=== PATIENT | male | born 1995 | race Caucasian/White ===

== ENCOUNTER 2020-01-25 14:48 | Outpatient (REF) | payer OTHER, MEDICAID, SELFPAY ==
--- NOTE | 2020-01-25 14:51 | US_ITS ---
EXAMINATION: US ABDOMEN COMPLETE CLINICAL INFORMATION: Right lower quadrant abdominal pain. COMPARISON: None TECHNIQUE: Real-time imaging of the abdominal viscera. FINDINGS: PANCREAS: The visualized head and body of the pancreas appears unremarkable. Remainder of the pancreas is obscured by bowel gas. ABDOMINAL AORTA: The distal aorta is partially obscured by bowel gas. Remainder of the aorta demonstrates normal caliber. INFERIOR VENA CAVA: Visualized portions are normal. LIVER: Diffuse increased echogenicity. No focal hepatic lesion. There is no intrahepatic biliary duct dilatation seen. GALLBLADDER: Normal. The gallbladder is physiologically distended without evidence of stones, sludge, polyps, wall thickening or pericholecystic fluid. COMMON BILE DUCT: Normal in caliber measuring 0.6 cm in diameter. RIGHT KIDNEY: Normal. No hydronephrosis. No renal calculi or focal parenchymal lesions. The kidney measures 10.4 cm in maximum dimension. LEFT KIDNEY: Normal. No hydronephrosis. No renal calculi or focal parenchymal lesions. The kidney measures 10.0 cm in maximum dimension. SPLEEN: Normal. The spleen measures 10.3 cm in maximum dimension. FREE FLUID: None. US/US abdomen complete IMPRESSION: 1. There is generalized increase in hepatic echotexture, consistent with fatty infiltration or hepatocellular disease. Please correlate clinically. No focal hepatic mass or intrahepatic biliary duct dilatation is seen. 2. Otherwise unremarkable study.
[2020-01-25 15:56] LABS: MANUAL DIFF FLAG NO
[2020-01-25 16:01] LABS: Basophils Percent Auto 0.3 % (0-2); Eosinophils Percent Auto 0.2 % (0-4); Hematocrit 43.1 % (42-52); Hemoglobin 13.9 g/dl (14.0-18.0); Imm Gran Abs Auto 0.03 X10*3/uL (0.00-0.03); Imm Gran Pct Auto 0.3 % (0.0-0.4); Lymphocytes Percent Auto 22.5 % (20-40); Mean Corpuscular HGB Conc 32.3 g/dl (31.0-36.0); Mean Corpuscular Hemoglobin 29.8 pg (27.0-33.0); Mean Corpuscular Volume 92.3 fL (80-98); Mean Platelet Volume 9.5 fL (9.4-12.4); Monocytes Absolute Auto 0.7 X10*3/uL (0.1-1.2); Monocytes Percent Auto 7.3 % (2-11); Neutrophils Absolute Auto 6.2 X10*3/uL (2.0-8.3); Neutrophils Percent Auto 69.4 % (45-73); Platelet Count 280 X10*3/uL (160-400); Red Blood Count 4.67 X10*6/uL (4.60-5.80)
[2020-01-25 16:28] LABS: Alanine Aminotransferase 55 U/L (0-40); Albumin Level 5.1 g/dL (3.5-5.0); Alkaline Phosphatase 88 U/L (39-117); Amylase 65 U/L (28-100); Anion Gap 15 (12-20); Aspartate Amino Transferase 50 U/L (5-37); Bilirubin Direct 0.3 mg/dL (0.0-0.5); Bilirubin Total 0.5 mg/dL (0.0-1.0); Blood Urea Nitrogen 8 mg/dL (9-16); Calcium 9.9 mg/dL (8.4-10.2); Carbon Dioxide 30 mmol/L (22-29); Chloride 103 mmol/L (96-108); Estimated Glomerular Filt Rate > 60; Glucose Random 84 mg/dL (60-115); Lipase 30 U/L (8-78); Potassium 4.8 mmol/l (3.3-5.1); Sodium 143 mmol/L (135-145)
[2020-01-27 10:31] LABS: MANUAL DIFF FLAG NO
[2020-01-27 10:50] LABS: Basophils Absolute Auto 0.1 X10*3/uL (0.0-0.2); Basophils Percent Auto 0.7 % (0-2); Eosinophils Absolute Auto 0.2 X10*3/uL (0.0-0.4); Eosinophils Percent Auto 2.1 % (0-4); Hematocrit 45.2 % (42-52); Hemoglobin 14.8 g/dl (14.0-18.0); Imm Gran Abs Auto 0.02 X10*3/uL (0.00-0.03); Imm Gran Pct Auto 0.3 % (0.0-0.4); Lymphocytes Absolute Auto 2.4 X10*3/uL (1.2-4.9); Lymphocytes Percent Auto 30.7 % (20-40); Mean Corpuscular HGB Conc 32.7 g/dl (31.0-36.0); Mean Corpuscular Hemoglobin 29.9 pg (27.0-33.0); Mean Corpuscular Volume 91.3 fL (80-98); Monocytes Absolute Auto 0.7 X10*3/uL (0.1-1.2); Monocytes Percent Auto 9.3 % (2-11); Neutrophils Absolute Auto 4.4 X10*3/uL (2.0-8.3); Neutrophils Percent Auto 56.9 % (45-73); Platelet Count 316 X10*3/uL (160-400); Red Blood Count 4.95 X10*6/uL (4.60-5.80); Red Cell Distribution Width 12.9 % (11.0-16.0); White Blood Count 7.7 X10*3/uL (4.8-10.8)
== END 2020-01-25 14:49 | disposition home or self-care (01) ==
LOC: HO.US 14:48
PROVIDERS: PCP Nurse Practitioner Family; Visit Provider Nurse Practitioner Family
DX: R10.31 Right lower quadrant pain (principal); D64.9 Anemia, unspecified
CPT/HCPCS: 36415; 76700; 80048; 80076; 82150; 83690; 85025

== ENCOUNTER 2020-01-27 | Outpatient (REF) | payer OTHER, MEDICAID, SELFPAY | END 2020-01-27 00:01 | disposition home or self-care (01) | LOC: HO.LAB | PROVIDERS: Visit Provider Nurse Practitioner Family | DX: D64.9 Anemia, unspecified (principal) | CPT/HCPCS: 36415; 85025 ==

== ENCOUNTER 2020-05-12 15:03 | Outpatient (REF) | payer OTHER, MEDICAID, SELFPAY ==
[2020-05-12 16:53] LABS: Alanine Aminotransferase 32 U/L (0-40); Albumin Level 4.7 g/dL (3.5-5.0); Alkaline Phosphatase 95 U/L (39-117); Anion Gap 11 (12-20); Aspartate Amino Transferase 32 U/L (5-37); Bilirubin Total 0.4 mg/dL (0.0-1.0); Blood Urea Nitrogen 11 mg/dL (9-16); Calcium 9.2 mg/dL (8.4-10.2); Carbon Dioxide 32 mmol/L (22-29); Chloride 103 mmol/L (96-108); Estimated Glomerular Filt Rate > 60; Glucose Random 83 mg/dL (60-115); Potassium 3.8 mmol/L (3.3-5.1); Sodium 142 mmol/L (135-145); Total Protein 7.4 g/dL (6.5-8.0)
[2020-05-14 16:17] LABS: HCV Log PCR <1.18 NOT DETECTED Log IU/mL (NOT DETECTED); HepC Viral Load <15 NOT DETECTED IU/mL (NOT DETECTED)
== END 2020-05-12 15:04 | disposition home or self-care (01) ==
LOC: HO.HMGCLDS 15:03
PROVIDERS: PCP Nurse Practitioner Family; Visit Provider Hospitalist
DX: R76.8 Other specified abnormal immunological findings in serum (principal)
CPT/HCPCS: 36415; 80053; 87522

== ENCOUNTER 2020-05-20 14:22 | Outpatient (REF) | payer OTHER, MEDICAID, SELFPAY ==
--- NOTE | ~2020-05-20 | MM_ITS ---
EXAMINATION: MM DIAGNOSTIC DIGITAL BREAST TOMOSYNTHESIS, BILATERAL US DIAGNOSTIC ULTRASOUND BREAST, RIGHT CLINICAL INFORMATION: 24-year-old male with intermittent pain and mild fullness retroareolar right breast. No prior breast imaging. COMPARISON: None (current study represents initial baseline exam). TECHNIQUE: Digital breast tomosynthesis is performed in both the craniocaudal and mediolateral oblique views along with computer-aided detection (CAD). Synthesized 2D images are generated from the tomosynthesis. Ultrasound right breast is performed retroareolar and periareolar region. Grayscale imaging and color Doppler are performed without and with harmonics. FINDINGS: There are scattered areas of fibroglandular density (ACR BI-RADS breast composition Category b). There are changes of gynecomastia [id number] retroareolar right breast with trace involvement left retroareolar region. There is no mass or architectural abnormality or abnormal calcifications. The axilla and skin contours are unremarkable. No skin thickening. No coarsening of the stromal markings. Ultrasound right breast shows scattered vascular type pattern retroareolar region corresponding to the mammography. No additional findings. Results are discussed with the patient at time of visit. MM/MM tomosynthesis diagnostic BI IMPRESSION: Asymmetric gynecomastia, greater on right. ASSESSMENT: BI-RADS 2: Benign RECOMMENDATION: Patient may be managed based on the clinical impression as needed.
== END 2020-05-20 14:23 | disposition home or self-care (01) ==
LOC: HO.MAMMO 14:22
PROVIDERS: Visit Provider Internal Medicine
DX: N63.10 Unspecified lump in the right breast, unspecified quadrant (principal)
CPT/HCPCS: 76642; 77062; 77066

== ENCOUNTER 2021-12-01 12:03 | Inpatient (IN) | payer OTHER, MEDICAID, SELFPAY ==
[2021-12-01] VITALS (13 sets, daily range): BP systolic 148–163; BP diastolic 77–101; PULSE 88–143; RESP 12–30; TEMP 36.6–37.2; O2SAT 70–100; BMI 23.6
--- NOTE | ~2021-12-01 | XR_ITS ---
EXAMINATION: XR CHEST CLINICAL INFORMATION: Dyspnea COMPARISON: Chest x-ray 01/29/2017 TECHNIQUE: Frontal view of the chest was obtained. FINDINGS: The lungs are clear. No airspace consolidation, pleural effusion, or pneumothorax. The cardiomediastinal silhouette is within normal limits. No acute osseous injury. XR/XR chest 1V IMPRESSION: No acute pulmonary process.
--- NOTE | ~2021-12-01 | US_ITS ---
EXAMINATION: US ABDOMEN LIMITED CLINICAL INFORMATION: Elevated LFTs. COMPARISON: Abdominal ultrasound dated 01/25/2020. TECHNIQUE: Real-time imaging of the right upper quadrant abdominal viscera. FINDINGS: PANCREAS: Unremarkable. LIVER: Unremarkable. GALLBLADDER: Unremarkable. COMMON BILE DUCT: Normal in caliber measuring 0.5 cm in diameter. RIGHT KIDNEY: 10.3 cm. Unremarkable. FREE FLUID: None. US/US abdomen limited IMPRESSION: Unremarkable abdominal ultrasound.
--- NOTE | 2021-12-01 12:08 | ED_ITS ---
HPI - Asthma General Chief Complaint: Asthma Stated Complaint: diff breathing Time Seen by Provider: 12/01/21 12:05 Source: patient and old records reviewed Mode of arrival: EMS Limitations: no limitations History of Present Illness HPI Narrative: 26 yo male hx of ADHD, on methadone, post COVID syndrome, bronchial asthma - COVID 6 weeks ago treated with paxlovid since then has been on intermittent steroids from urgent care. Just saw pulmonology yesterday who recommended continuing prednisone 10mg daily, singulair, symbicort. Comes to the ED today with c/o worsening dyspnea and wheezes. Thinks smoking THC a couple of days ago triggered it. The patient reports no response to treatments at home. EMS notes patient was hypoxic with sats in 60s, end tidal 90s and tripoding, given 2 duonebs, IV steroids, IV magnesium with epi. States he feels much better but still working to breath on arrival MD complaint: asthma attack , shortness of breath and wheezing Onset (ago): day(s) (2) Severity: severe Context: smoke exposure Associated symptoms: dry cough Asthma History: adult onset Treatments Prior to Arrival: inhaled bronchodilator, IV steroid, oxygen and other (epi, magnesium) Related Data Home Medications Medication Instructions Recorded Confirmed budesonide-formoterol HFA 160 2 puff inhalation BID 11/01/21 12/01/21 mcg-4.5 mcg/actuation aerosol inhaler (Symbicort) methadone 10 mg/mL oral 102 mg PO DAILY 11/30/21 12/01/21 concentrate (Methadone Intensol) Previous Rx's Medication Instructions Recorded omeprazole 20 mg capsule,delayed 20 mg PO DAILY #30 caps 05/17/21 release montelukast 10 mg tablet 10 mg PO BEDTIME 90 days #90 tabs 11/01/21 albuterol sulfate 90 mcg/actuation 1 puff inhalation QID PRN 11/20/21 aerosol inhaler shortness of breath or wheezing 30 days #8.5 grams albuterol sulfate 0.63 mg/3 mL 0.63 mg (3 mL) inhalation QID PRN 11/21/21 solution for nebulization shortness of breath or wheezing 30 days #75 mL Updraft machine #1 ea 11/27/21 Allergies Allergy/AdvReac Type Severity Reaction Status Date / Time No Known Allergies Allergy Verified 11/30/21 16:10 [No Known Allergies*] Review of Systems Review of Systems: Constitutional : No Fever, No Chills ENT/Mouth : No Hoarseness, No sore throat, No Rhinorrhea Eyes: No Redness, No Discharge, No Vision Changes Cardiovascular : No Chest Pain, positive SOB, positive Dyspnea on Exertion, No Edema Respiratory : positive Cough, No Sputum, positive Wheezing, Gastrointestinal : No Nausea, No Vomiting, No Diarrhea, No abdominal Pain Genitourinary : No Dysuria, No Hematuria Musculoskeletal : No joint pain, No Myalgias Skin : No rash Neuro : No Weakness, No Numbness, No Headache Psych : No anxiety, depression Heme/Lymph: No Bruising, No Bleeding Endocrine : No Polyuria, No Polydipsia All other systems reviewed and are negative PMFSH Past Medical History Attestation statement: The following information was validated with the patient. Source: old records reviewed Medical History Asthma Attention deficit hyperactivity disorder (ADHD) Breast mass in male Elevated LFTs Gastritis History of opioid abuse Surgical History No pertinent past surgical history Family History Family History Father History of kidney transplant Heart problem Diabetes mellitus Mother Smoker ETOH abuse Maternal Grandmother Breast cancer Maternal Grandfather CVD (cardiovascular disease) Paternal Grandmother No problems noted. 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 Oriented X3. Moderate acute distress. Eyes: Pupils equal, round and reactive to light. ENT: Pharynx normal. Neck: Normal inspection. Neck supple. CVS: tachycardic heart rate and rhythm. Pulses normal. Respiratory: moderate respiratory distress - single words, tachypnea, retractions. Breath sounds decreased - diffuse wheezes noted throughout Abdomen: Soft and nontender. Skin: Skin warm and dry. Normal skin color. Normal skin turgor. Extremities: No lower extremity edema. No calf ttp Neuro: Oriented X 3. No motor deficit. No sensory deficit. Course Course Course Narrative: leukocytosis likely due to steroid use hi flow ordered 3rd neb as well patient is drastically improving on high flow will continue to observe patient doing much better, repeat VBG ordered planned admit repeat VBG better patient on lower hiflo - 30/30% looks way more comfortable MDM - Asthma MDM Narrative Medical decision making narrative: 26 yo male hx of ADHD, on methadone, post COVID syndrome, bronchial asthma - COVID 6 weeks ago treated with paxlovid since then has been on intermittent steroids - at this time presents with severe asthma attack. Will need additional hour long neb treatment - already received IV steroids, IV magnesium and IM epi with EMS. Will order labs, COVID, CXR. Anticipate admission - no prior admits or intubations. Lab Data Result diagrams: 12/01/21 12:50 12/01/21 12:50 Labs: Lab Results 12/01/21 12/01/21 12/01/21 Range/Units 12:36 12:50 12:50 WBC 21.0 H (4.8-10.8) X10*3/uL RBC 4.70 (4.60-5.80) X10*6/uL Hgb 13.5 L (14.0-18.0) g/dl Hct 40.2 L (42.0-52.0) % MCV 85.5 (80.0-98.0) fL MCH 28.7 (27.0-33.0) pg MCHC 33.6 (31.0-36.0) g/dl RDW 12.1 (11.0-16.0) % Plt Count 315 (160-400) X10*3/uL MPV 9.1 L (9.4-12.4) fL Immature Gran % (Auto) 0.6 H (0.0-0.4) % Neut % (Auto) 69.3 (45-73) % Lymph % (Auto) 14.5 L (20-40) % [place] % (Auto) 6.8 (2-11) % Eos % (Auto) 8.3 H (0-4) % Baso % (Auto) 0.5 (0-2) % Lymph # (Auto) 3.0 (1.2-4.9) X10*3/uL [place] # (Auto) 1.4 H (0.1-1.2) X10*3/uL Eos # (Auto) 1.8 H (0.0-0.4) X10*3/uL Baso # (Auto) 0.1 (0.0-0.2) X10*3/uL Abs Immat Gran (auto) 0.13 H (0.00-0.03) X10*3/uL Absolute Neuts (auto) 14.6 H (2.0-8.3) x10*3/uL Absolute Nucleated RBC 0.000 (0.0-0.012) X10*3/uL Nucleated RBC % (auto) 0.0 (0.0-0.2) /100WBC VBG pH (7.32-7.43) VBG pCO2 mmHg VBG pO2 mmHg VBG HCO3 (22-26) mmol/L VBG O2 Saturation % VBG Base Excess mmol/L Sodium 141 (135-145) mmol/L Potassium 3.6 (3.3-5.1) mmol/L Chloride 103 (96-108) mmol/L Carbon Dioxide 28 (22-29) mmol/L Anion Gap 14 (12-20) BUN 11 (9-16) mg/dL Creatinine 0.85 (0.5-1.4) mg/dL Estim Creat Clear Calc 137.1 Estimated GFR > 60 Random Glucose 237 H D (60-115) mg/dL Calcium 8.7 (8.4-10.2) mg/dL Magnesium 3.0 H (1.6-2.6) mg/dL Total Bilirubin 0.2 (0.0-1.0) mg/dL Direct Bilirubin < 0.2 (0.0-0.5) mg/dL AST 109 H (5-37) U/L ALT 65 H (0-40) U/L Alkaline Phosphatase 76 (39-117) U/L Total Protein 6.6 (6.5-8.0) g/dL Albumin 4.2 (3.5-5.0) g/dL COVID-19 (SHOAIB) Negative (Negative) COVID-19 Clin Com See Note 12/01/21 12/01/21 Range/Units 12:52 14:57 WBC (4.8-10.8) X10*3/uL RBC (4.60-5.80) X10*6/uL Hgb (14.0-18.0) g/dl Hct (42.0-52.0) % MCV (80.0-98.0) fL MCH (27.0-33.0) pg MCHC (31.0-36.0) g/dl RDW (11.0-16.0) % Plt Count (160-400) X10*3/uL MPV (9.4-12.4) fL Immature Gran % (Auto) (0.0-0.4) % Neut % (Auto) (45-73) % Lymph % (Auto) (20-40) % [place] % (Auto) (2-11) % Eos % (Auto) (0-4) % Baso % (Auto) (0-2) % Lymph # (Auto) (1.2-4.9) X10*3/uL [place] # (Auto) (0.1-1.2) X10*3/uL Eos # (Auto) (0.0-0.4) X10*3/uL Baso # (Auto) (0.0-0.2) X10*3/uL Abs Immat Gran (auto) (0.00-0.03) X10*3/uL Absolute Neuts (auto) (2.0-8.3) x10*3/uL Absolute Nucleated RBC (0.0-0.012) X10*3/uL Nucleated RBC % (auto) (0.0-0.2) /100WBC VBG pH 7.25 L 7.31 L (7.32-7.43) VBG pCO2 61 53 mmHg VBG pO2 56 49 mmHg VBG HCO3 27 H TNP (22-26) mmol/L VBG O2 Saturation 79.0 75.0 % VBG Base Excess -0.8 0.8 mmol/L Sodium (135-145) mmol/L Potassium (3.3-5.1) mmol/L Chloride (96-108) mmol/L Carbon Dioxide (22-29) mmol/L Anion Gap (12-20) BUN (9-16) mg/dL Creatinine (0.5-1.4) mg/dL Estim Creat Clear Calc Estimated GFR Random Glucose (60-115) mg/dL Calcium (8.4-10.2) mg/dL Magnesium (1.6-2.6) mg/dL Total Bilirubin (0.0-1.0) mg/dL Direct Bilirubin (0.0-0.5) mg/dL AST (5-37) U/L ALT (0-40) U/L Alkaline Phosphatase (39-117) U/L Total Protein (6.5-8.0) g/dL Albumin (3.5-5.0) g/dL COVID-19 (SHOAIB) (Negative) COVID-19 Clin Com ECG Data Attestation: I personally reviewed and interpreted this ECG as follows: ECG interpretation date: 12/01/21 ECG interpretation time: 13:14 Interpretation: Rate: 124 Rhythm: sinus tach [place]: rightward Normal P waves. Normal SELENA. Normal QRS complex. ST T wave : normal no TYE qTC: normal prior studies: none The study has been interpreted contemporaneously by me. . Critical Care Time Critical Care Time Critical Care Time: Yes Total Critical Care Time: 60 Attestation: high flow o2, repeat hour long nebs, IV meds, IV steroids, IV magnesium, admission I attest to this time spent taking care of the patient Discharge Plan Discharge Clinical Impression: Asthmaticus, status Qualifiers: Asthma severity: moderate Asthma persistence: persistent Qualified Code(s): J45.42 - Moderate persistent asthma with status asthmaticus Patient Disposition: Admitted As Inpatient
--- NOTE | 2021-12-01 12:13 | ECG_ITS ---
Test Reason : DIFFIULTY BREATHIN Blood Pressure : / mmHG Vent. Rate : 124 BPM Atrial Rate : 124 BPM P-R Int : 122 ms QRS Dur : 084 ms QT Int : 308 ms P-R-T Axes : 066 091 025 degrees QTc Int : 442 ms Sinus tachycardia Rightward axis RSR' or QR pattern in V1 suggests right ventricular conduction delay Nonspecific T wave abnormality Lateral leads Abnormal ECG When compared with ECG of 29-JAN-2017 22:06, Nonspecific T wave abnormality now evident in Lateral leads Referred By: Mayi Bass Electronically Signed By:SHUN GARCIA MD
[2021-12-01] MEDS: 0.9 % Sodium Chloride 1,000 ML 999 ML IVCONT (12:29)
[2021-12-01] MEDS: Albuterol Sulfate 2.5 MG/0.5 ML VIAL.NEB 10 MG INHALE (12:30)
[2021-12-01] MEDS: Albuterol Sulfate 7.5 MG, Albuterol/Iprat 2.5/0.5MG 3 ML 3 ML INHALE ×2 (12:46→13:19)
[2021-12-01 12:55] LABS: MANUAL DIFF FLAG NO
[2021-12-01 12:57] LABS: COVID-19 Test Negative (Negative)
[2021-12-01 12:58] LABS: VBG Base Excess -0.8 mmol/L; VBG HCO3 27 mmol/L (22-26); VBG pCO2 61 mmHg; VBG pH 7.25 (7.32-7.43); VBG pO2 56 mmHg
[2021-12-01 12:59] LABS: Basophils Absolute Auto 0.1 X10*3/uL (0.0-0.2); Basophils Percent Auto 0.5 % (0-2); Eosinophils Absolute Auto 1.8 X10*3/uL (0.0-0.4); Eosinophils Percent Auto 8.3 % (0-4); Hematocrit 40.2 % (42.0-52.0); Hemoglobin 13.5 g/dl (14.0-18.0); Imm Gran Abs Auto 0.13 X10*3/uL (0.00-0.03); Imm Gran Pct Auto 0.6 % (0.0-0.4); Lymphocytes Percent Auto 14.5 % (20-40); Mean Corpuscular HGB Conc 33.6 g/dl (31.0-36.0); Mean Corpuscular Hemoglobin 28.7 pg (27.0-33.0); Mean Corpuscular Volume 85.5 fL (80.0-98.0); Mean Platelet Volume 9.1 fL (9.4-12.4); Monocytes Absolute Auto 1.4 X10*3/uL (0.1-1.2); Monocytes Percent Auto 6.8 % (2-11); Neutrophils Absolute Auto 14.6 x10*3/uL (2.0-8.3); Neutrophils Percent Auto 69.3 % (45-73); Platelet Count 315 X10*3/uL (160-400); Red Cell Distribution Width 12.1 % (11.0-16.0)
[2021-12-01 13:01] LABS: Venous Blood Gas Refer to POC result
[2021-12-01 13:16] LABS: Alanine Aminotransferase 65 U/L (0-40); Albumin Level 4.2 g/dL (3.5-5.0); Alkaline Phosphatase 76 U/L (39-117); Anion Gap 14 (12-20); Aspartate Amino Transferase 109 U/L (5-37); Bilirubin Direct < 0.2 mg/dL (0.0-0.5); Bilirubin Total 0.2 mg/dL (0.0-1.0); Blood Urea Nitrogen 11 mg/dL (9-16); Calcium 8.7 mg/dL (8.4-10.2); Carbon Dioxide 28 mmol/L (22-29); Chloride 103 mmol/L (96-108); Creatinine Clr Calc Pharmacy 137.1; Estimated Glomerular Filt Rate > 60; Glucose Random 237 mg/dL (60-115); Potassium 3.6 mmol/L (3.3-5.1); Sodium 141 mmol/L (135-145); Total Protein 6.6 g/dL (6.5-8.0)
--- NOTE | 2021-12-01 13:41 | PHA.MEDREC ---
Pharmacy Consult ? Medication Reconciliation Pharmacy has completed the medication reconciliation. Patient confirmed all medications. Cee Garrido, TaylaD
--- NOTE | 2021-12-01 14:09 | HE.PHANOTE ---
Methdone Confirmation Patient last received methadone 102 mg on 12/01/2021 @ 3132 at [facility]. Confirmed with LUCILA Stark at [facility]. Cee Garrido, TaylaD
[2021-12-01 15:02] LABS: VBG Base Excess 0.8 mmol/L; VBG pCO2 53 mmHg; VBG pH 7.31 (7.32-7.43); VBG pO2 49 mmHg
[2021-12-01 15:03] LABS: Venous Blood Gas Refer to POC result
--- NOTE | 2021-12-01 15:51 | P.HPHOSP_ITS ---
History of Present Illness Date of Service: 12/01/21 <LUCILA Young - Last Filed: 12/01/21 16:18> Attending physician on admission: Liss Frederick <LUCILA Young - Last Filed: 12/01/21 16:18> Chief Complaint: sob, wheezing <LUCILA Young - Last Filed: 12/01/21 16:18> 26-year-old male with history of moderate persistent asthma has been experiencing exacerbation since COVID-19 diagnosis 5 weeks ago treated with paxlovid on prednisone taper (currently 5mg), ADHD, substance abuser, and opiate dependence the on methadone presented to the ED via EMS after developing sudden onset shortness of breath while at home. He states he did smoke marijuana last night which may have been triggering. EMS noted on arrival patient was hypoxic with sats in the 60s, end-tidal 90s and tripoding. He was given 2 DuoNebs, IV steroids, IV magnesium with epi. On arrival to the ED, patient reporting feeling much better but still wheezing. He was given additional DuoNeb and placed on high-flow oxygen. On arrival, tachycardic to 140, tachypneic to 30 with oximetry of 92%. CXR negative for any acute pulmonary abnormality. WBC 21.0, stable normocytic anemia. Renal function and electrolyte levels normal, glucose 237, magnesium 3.0, AST 109, ALT 65. Negative for COVID-19. He denies any sick contacts. Since being diagnosed with COVID-19 5 weeks ago he has been experiencing an increase in shortness of breath and wheezing as well as alb uterol usage. He is now following with pulmonology who has started him on Symbicort and he is completing a prednisone taper. He reports symptoms of shortness of breath, wheezing, and cough. Denies any fevers, chills, abdominal pain, nausea, vomiting, lightheadedness, or chest pain. Reports 3 12 oz beers per day, last drink yesterday, denies history withdrawal. Rerports daily inh fentanyl use, last use this morning. No cigarettes. <LUCILA Young - Last Filed: 12/01/21 16:18> Review of Systems Review of Systems: General: No fevers, malaise, unintentional weight loss HEENT: No runny nose, congestion, sore throat Cardiovascular: No chest pain, palpitations, or leg edema Respiratory: Reports shortness of breath, wheezing, cough GI: No abdominal pain, nausea, vomiting, diarrhea, constipation, melena, hematochezia : No dysuria, hematuria, increased urinary frequency Neuro: No headaches, weakness, paresthesias Skin: No rashes or lesions <LUCILA Young - Last Filed: 12/01/21 16:18> ON LICENSE OF [facility] Medical History: Medical History Asthma Attention deficit hyperactivity disorder (ADHD) Breast mass in male Elevated LFTs Gastritis History of opioid abuse <LUCILA Young Last Filed: 12/01/21 16:18> Family History: Family History Father History of kidney transplant Heart problem Diabetes mellitus Mother Smoker ETOH abuse Maternal Grandmother Breast cancer Maternal Grandfather CVD (cardiovascular disease) Paternal Grandmother No problems noted. Paternal Grandfather Diabetes mellitus Paternal Uncle Substance use disorder Maternal Uncle Substance use disorder Family/Other Substance use disorder <LUCILA Young Last Filed: 12/01/21 16:18> Surgical History: Surgical History No pertinent past surgical history <LUCILA Young Last Filed: 12/01/21 16:18> Social History: Social History (Updated 12/01/21 @ 12:16 by Mayi Bass DO) Housing: House Alcohol intake: current Alcohol intake frequency: 0-2 drinks per day Patient Tobacco Use Status: Former Tobacco user e-Cigarette/Vaping Use: Never Used Second Hand Smoke Exposure: No Substance Use Type: Marijuana Advance Directives: No Advance Directives Information Provided: No Current occupational status: employed 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 Current occupational exposures/hazards: No Cognitive needs: No Hearing needs: No Vision needs: No <LUCILA Young Last Filed: 12/01/21 16:18> Meds Allergies/Adverse reactions: Allergies Allergy/AdvReac Type Severity Reaction Status Date / Time No Known Allergies Allergy Verified 11/30/21 16:10 [No Known Allergies*] <LUCILA Young - Last Filed: 12/01/21 16:18> Active Medications: Current Medications Acetaminophen (Acetaminophen 325 Mg Tablet) 650 mg PO Q6H PRN PRN Reason: Pain, Mild (Pain Scale 1-3) Albuterol/Ipratropium (Albuterol/Iprat 2.5/0.5mg 3 Ml Ampul.Neb) 3 ml INHALE RQ4H WHILE AWAKE BETI Docusate Sodium (Docusate Sodium 100 Mg Capsule) 100 mg PO DAILY PRN PRN Reason: Constipation Enoxaparin Sodium (Enoxaparin Sodium 40 Mg/0.4 Ml Syringe) 40 mg SUBCUT Q24H BETI Guaifenesin (Guaifenesin 200 Mg/10 Ml 10 Ml Liquid) 10 ml PO Q6H PRN PRN Reason: Cough Methylprednisolone Sodium Succinate (Methylprednisolone Sod Succ 40 Mg/Ml Vial) 40 mg IVPUSH Q12H BETI Ondansetron HCl (Ondansetron Hcl 4 Mg/2 Ml Vial) 4 mg IVPUSH Q8H PRN PRN Reason: Nausea and Vomiting Pharmacy Consult (Consult Rx Perform Med Rec) 1 each MISCELLANE ONCE PRN PRN Reason: Consult order Sodium Chloride (0.9 % Sodium Chloride Flush 3 Ml Syringe) 3 ml IVFLUSH QSHIFT [facility] <LUCILA Young - Last Filed: 12/01/21 16:18> Home medications: Home Medications Medication Instructions Recorded Confirmed Last Taken Type budesonide-formoterol HFA 160 2 puff inhalation BID 11/01/21 12/01/21 11/30/21 History mcg-4.5 mcg/actuation aerosol inhaler (Symbicort) methadone 10 mg/mL oral 102 mg PO DAILY 11/30/21 12/01/21 12/01/21 07:54 History concentrate (Methadone Intensol) <LUCILA Young - Last Filed: 12/01/21 16:18> Physical Exam Vital Signs and Narrative: Vital Signs: Last Vital Signs Temp 98 F 12/01/21 12:56 Pulse 123 H 12/01/21 13:19 Resp 18 12/01/21 14:55 BP 160/85 H 12/01/21 12:56 Pulse Ox 95 12/01/21 13:15 O2 Del Method 12/01/21 13:15 O2 Flow Rate 3 12/01/21 12:56 BMI result Body Mass Index 23.6 <LUCILA Young - Last Filed: 12/01/21 16:18> Constitutional - Awake and Alert, No apparent distress Eyes - PERRLA, EOMI Cardiovascular - S1S2, RRR, No edema Respiratory - Coarse lung sounds with diffuse wheezing bilaterally Normal lung expansion, Normal respiratory effort, No respiratory distress on high-flow oxygen Gastrointestinal - NT / ND; +BS; No rebound or guarding Extremities - no calf tenderness bilaterally, no swelling Skin - Warm/Dry Neurological - Alert & oriented x3, No focal deficit Psychological - Appropriate affect <LUCILA Young - Last Filed: 12/01/21 16:18> Results Labs CBC and Chem 7: : 12/01/21 12:50 12/01/21 12:50 <LUCILA Young - Last Filed: 12/01/21 16:18> Labs: Laboratory Results - last 24 hr 12/01/21 12/01/21 12/01/21 12:36 12:50 12:50 MCV 85.5 MCH 28.7 MCHC 33.6 RDW 12.1 Plt Count 315 MPV 9.1 L Immature Gran % (Auto) 0.6 H Neut % (Auto) 69.3 Lymph % (Auto) 14.5 L [place] % (Auto) 6.8 Eos % (Auto) 8.3 H Baso % (Auto) 0.5 Lymph # (Auto) 3.0 [place] # (Auto) 1.4 H Eos # (Auto) 1.8 H Baso # (Auto) 0.1 Abs Immat Gran (auto) 0.13 H Absolute Neuts (auto) 14.6 H Absolute Nucleated RBC 0.000 Nucleated RBC % (auto) 0.0 VBG pH VBG pCO2 VBG pO2 VBG HCO3 VBG O2 Saturation VBG Base Excess Anion Gap 14 Estim Creat Clear Calc 137.1 Estimated GFR > 60 Random Glucose 237 H D Calcium 8.7 Magnesium 3.0 H Total Bilirubin 0.2 Direct Bilirubin < 0.2 AST 109 H ALT 65 H Alkaline Phosphatase 76 Total Protein 6.6 Albumin 4.2 COVID-19 (SHOAIB) Negative COVID-19 Clin Com See Note 12/01/21 12/01/21 12:52 14:57 MCV MCH MCHC RDW Plt Count MPV Immature Gran % (Auto) Neut % (Auto) Lymph % (Auto) [place] % (Auto) Eos % (Auto) Baso % (Auto) Lymph # (Auto) [place] # (Auto) Eos # (Auto) Baso # (Auto) Abs Immat Gran (auto) Absolute Neuts (auto) Absolute Nucleated RBC Nucleated RBC % (auto) VBG pH 7.25 L 7.31 L VBG pCO2 61 53 VBG pO2 56 49 VBG HCO3 27 H TNP VBG O2 Saturation 79.0 75.0 VBG Base Excess -0.8 0.8 Anion Gap Estim Creat Clear Calc Estimated GFR Random Glucose Calcium Magnesium Total Bilirubin Direct Bilirubin AST ALT Alkaline Phosphatase Total Protein Albumin COVID-19 (SHOAIB) COVID-19 Clin Com <LUCILA Young - Last Filed: 12/01/21 16:18> Imaging Radiologist's Impressions: Impressions Chest X-Ray 12/01/21 12:50 IMPRESSION: No acute pulmonary process. <LUCILA Young - Last Filed: 12/01/21 16:18> Assessment and Plan (1) Asthmaticus, status: Qualifiers: Asthma persistence: persistent Asthma severity: moderate Qualified Code(s): J45.42 - Moderate persistent asthma with status asthmaticus <LUCILA Young - Last Filed: 12/01/21 16:18> Status: Acute <LUCILA Young - Last Filed: 12/01/21 16:18> (2) Post-COVID syndrome: Status: Acute <LUCILA Young - Last Filed: 12/01/21 16:18> (3) Acute hypoxemic respiratory failure: Status: Acute <LUCILA Young - Last Filed: 12/01/21 16:18> 26-year-old male with history of moderate persistent asthma has been experiencing exacerbation since COVID-19 diagnosis 5 weeks ago treated with paxlovid on prednisone taper (currently 5mg), ADHD, substance abuser, and opiate dependence the on methadone admitted for status asthmaticus with acute hypoxemic respiratory failure. # acute hypoxemic respiratory failure secondary to severe asthma exacerbation -oximetry a of 67% per EMS -initially requiring high-flow oxygen in the ED. Titrate to nasal cannula to maintain oxygen saturation >92% -treatment of asthma exacerbation as below # status asthmaticus -COVID-19 negative -moderate persistent asthma with exacerbation of symptoms ongoing since COVID-19 diagnosis 5 weeks ago on outpatient prednisone taper -who received IV steroids, DuoNeb x2, and IV magnesium with epinephrine no EMS with an additional DuoNeb given in the ED. -to titrate oxygen as above -40 mg IV Solu-Medrol by daily -DuoNebs every 4 hours while awake -guaifenesin as needed for cough # opioid dependence with ongoing substance use -continue methadone -addiction consult for ongoing fentanyl use and alcohol use # alcohol abuse -drinks 312 oz beers daily, last drink last night -CIWA scale # transaminitis -AST 109/ALT 65 -hepatitis-B/C profile ordered. HIV ab/Ag ordered due to history of drug abuse -consider abdominal ultrasound if LFTs remain elevated DVT prophylaxis-Lovenox Full code Patient requires inpatient stay of at least 2 midnights due to status asthmaticus with acute hypoxemic respiratory failure requiring high-flow oxygen, IV steroids <LUCILA Young - Last Filed: 12/01/21 16:18> 26-year-old male with history of moderate persistent asthma has been experiencing exacerbation since COVID-19 diagnosis 5 weeks ago treated with paxlovid on prednisone taper (currently 5mg), ADHD, substance abuser, and opiate dependence the on methadone admitted for status asthmaticus with acute hypoxemic respiratory failure. # acute hypoxemic respiratory failure secondary to severe asthma exacerbation -oximetry a of 67% per EMS -initially requiring high-flow oxygen in the ED. Titrate to nasal cannula to maintain oxygen saturation >92% -treatment of asthma exacerbation as below # status asthmaticus -COVID-19 negative -moderate persistent asthma with exacerbation of symptoms ongoing since COVID-19 diagnosis 5 weeks ago on outpatient prednisone taper -who received IV steroids, DuoNeb x2, and IV magnesium with epinephrine no EMS with an additional DuoNeb given in the ED. -to titrate oxygen as above -40 mg IV Solu-Medrol by daily -DuoNebs every 4 hours while awake -guaifenesin as needed for cough # opioid dependence with ongoing substance use -continue methadone -addiction consult for ongoing fentanyl use and alcohol use # alcohol abuse -drinks 312 oz beers daily, last drink last night -CIWA scale # transaminitis -AST 109/ALT 65 -hepatitis-B/C profile ordered. HIV ab/Ag ordered due to history of drug abuse -consider abdominal ultrasound if LFTs remain elevated DVT prophylaxis-Lovenox Full code Patient requires inpatient stay of at least 2 midnights due to status asthmaticus with acute hypoxemic respiratory failure requiring high-flow oxygen, IV steroids Addendum to history and physical by mid-level provider, LUCILA Burgess I interviewed and examined the patient. I discussed their presentation and management with the mid-level provider. I reviewed the history and physical and agree with the documentation, with the following additions and corrections: 26yo M with mod per bronchial asthma, recent Covid infection 5 wk ago, OUD on methadone Smoked THC last night and developed sudden onset dyspnea, found to be hypoxic and in severe resp ditress. Given IV mag, neb epi, IV steroids, Duonebs, and placed on HFNC Now much better though has prolonged exp phase and prolonged exp wheeze admit for status asthmaticus, give IV steroids and standing/prn nebs <Liss Frederick MD - Last Filed: 12/01/21 17:01> Quality Stroke Does the patient have a stroke diagnosis?: No <LUCILA Young - Last Filed: 12/01/21 16:18> VTE Prior VTE?: No <LUCILA Young - Last Filed: 12/01/21 16:18> VTE Risk Level:: Medical - moderate - high <LUCILA Young - Last Filed: 12/01/21 16:18> VTE Device Contraindication: Treatment Not Indicated <LUCILA Young - Last Filed: 12/01/21 16:18> VTE Drug Contraindication: N/A - Med Ordered <LUCILA Young - Last Filed: 12/01/21 16:18>
[2021-12-01] MEDS: Albuterol/Iprat 2.5/0.5MG 3 ML AMPUL.NEB INHALE ×2 (16:39→20:47)
[2021-12-01] MEDS: methylPREDNISolone Sod Succ 40 MG/ML VIAL IVPUSH (16:46)
[2021-12-01] MEDS: 0.9 % Sodium Chloride Flush 3 ML SYRINGE IVFLUSH (16:46)
[2021-12-01] MEDS: Enoxaparin Sodium 40 MG/0.4 ML SYRINGE SUBCUT (18:23)
[2021-12-01 20:07] LABS: D Dimer High Sensitivity < 150 NG/ML
--- NOTE | 2021-12-01 20:57 | PC.NURSE ---
RN to RN report given to MELI Ramos. Pt will be transferred to room 375. Pt aware.
--- NOTE | 2021-12-01 21:02 | PC.RT ---
Placed pt on 3L NC; RN & MD aware.
[2021-12-02] VITALS (10 sets, daily range): BP systolic 140–179; BP diastolic 58–90; PULSE 66–91; RESP 16–20; TEMP 36.6–37.1; O2SAT 94–100; BMI 23.6
[2021-12-02] MEDS: methylPREDNISolone Sod Succ 40 MG/ML VIAL IVPUSH ×2 (03:55→17:36)
[2021-12-02] MEDS: guaiFENesin 200 MG/10 ML 10 ML LIQUID PO ×2 (03:55→18:27)
[2021-12-02] MEDS: Acetaminophen 325 MG TABLET 650 MG PO (03:58)
[2021-12-02 06:42] LABS: Alanine Aminotransferase 72 U/L (0-40); Albumin Level 4.4 g/dL (3.5-5.0); Alkaline Phosphatase 68 U/L (39-117); Anion Gap 17 (12-20); Aspartate Amino Transferase 117 U/L (5-37); Bilirubin Total 0.4 mg/dL (0.0-1.0); Blood Urea Nitrogen 7 mg/dL (9-16); Carbon Dioxide 28 mmol/L (22-29); Chloride 102 mmol/L (96-108); Creatinine Clr Calc Pharmacy 164.2; Estimated Glomerular Filt Rate > 60; Glucose Random 118 mg/dL (60-115); Potassium 4.8 mmol/L (3.3-5.1); Sodium 142 mmol/L (135-145)
[2021-12-02] MEDS: Albuterol/Iprat 2.5/0.5MG 3 ML AMPUL.NEB INHALE ×4 (08:09→20:30)
[2021-12-02 08:35] LABS: MANUAL DIFF FLAG NO
[2021-12-02 08:47] LABS: Basophils Percent Auto 0.4 % (0-2); Eosinophils Absolute Auto 0.1 X10*3/uL (0.0-0.4); Hematocrit 39.6 % (42.0-52.0); Hemoglobin 13.2 g/dl (14.0-18.0); Imm Gran Abs Auto 0.05 X10*3/uL (0.00-0.03); Imm Gran Pct Auto 0.4 % (0.0-0.4); Lymphocytes Absolute Auto 1.8 X10*3/uL (1.2-4.9); Lymphocytes Percent Auto 15.7 % (20-40); Mean Corpuscular HGB Conc 33.3 g/dl (31.0-36.0); Mean Corpuscular Hemoglobin 28.8 pg (27.0-33.0); Mean Corpuscular Volume 86.3 fL (80.0-98.0); Monocytes Absolute Auto 0.9 X10*3/uL (0.1-1.2); Monocytes Percent Auto 8.2 % (2-11); Neutrophils Absolute Auto 8.4 x10*3/uL (2.0-8.3); Neutrophils Percent Auto 74.3 % (45-73); Platelet Count 325 X10*3/uL (160-400); Red Blood Count 4.59 X10*6/uL (4.60-5.80); Red Cell Distribution Width 12.3 % (11.0-16.0); White Blood Count 11.3 X10*3/uL (4.8-10.8)
--- NOTE | 2021-12-02 09:10 | HO.PM.IMPN ---
Subjective Subjective Date of Service: 12/02/21 Interval History: Seen in follow-up for status asthmaticus Interval history: Patient reports improvement in dyspnea but is still wheezing. He is also showing signs of alcohol withdrawal reporting sweats, nausea, no vomiting, tremors, anxiety, chills. Last CIWA score was 3 Review of Systems General: No fevers, malaise, unintentional weight loss HEENT: No blurred vision, light sensitivity Cardiovascular: No chest pain, palpitations, or leg edema Respiratory: +wheezing. No shortness of breath, cough GI: +Nausea. No abdominal pain, vomiting, diarrhea, constipation, melena, hematochezia Neuro: +tremors, +headache. No weakness, paresthesias Skin: No rashes or lesions Physical Exam Vital Signs: Vital Signs: Last Vital Signs Temp 97.8 F 12/02/21 08:00 Pulse 77 12/02/21 08:11 Resp 18 12/02/21 08:11 BP 140/90 H 12/02/21 08:00 Pulse Ox 96 12/02/21 08:00 O2 Del Method 12/02/21 08:00 O2 Flow Rate 3 12/02/21 03:30 BMI result Body Mass Index 23.6 Constitutional - Awake and Alert, No apparent distress Eyes - PERRLA, EOMI Cardiovascular - S1S2, RRR, No edema Respiratory - Diffuse prolonged expiratory wheezing b/l. Normal lung expansion, Normal respiratory effort, No respiratory distress Gastrointestinal - NT / ND; +BS; No rebound or guarding Extremities - no calf tenderness bilaterally, no swelling Skin - Warm/clammy Neurological - Alert & oriented x3, CN II-XII in tact, tremulous with outstretched hands Psychological - Appropriate affect Objective Data Active Medications Acetaminophen (Acetaminophen 325 Mg Tablet) 650 mg PO Q6H PRN PRN Reason: Pain, Mild (Pain Scale 1-3) Last Admin: 12/02/21 03:58 Dose: 650 mg Documented By: ALCIRA Albuterol/Ipratropium (Albuterol/Iprat 2.5/0.5mg 3 Ml Ampul.Neb) 3 ml INHALE RQ4H WHILE AWAKE BETI Last Admin: 12/02/21 08:09 Dose: 3 ml Documented By: CECILIA Docusate Sodium (Docusate Sodium 100 Mg Capsule) 100 mg PO DAILY PRN PRN Reason: Constipation Enoxaparin Sodium (Enoxaparin Sodium 40 Mg/0.4 Ml Syringe) 40 mg SUBCUT Q24H [facility] Last Admin: 12/01/21 18:23 Dose: 40 mg Documented By: CARA Guaifenesin (Guaifenesin 200 Mg/10 Ml 10 Ml Liquid) 10 ml PO Q6H PRN PRN Reason: Cough Last Admin: 12/02/21 03:55 Dose: 10 ml Documented By: ALCIRA Methylprednisolone Sodium Succinate (Methylprednisolone Sod Succ 40 Mg/Ml Vial) 40 mg IVPUSH Q12H [facility] Last Admin: 12/02/21 03:55 Dose: 40 mg Documented By: ALCIRA Ondansetron HCl (Ondansetron Hcl 4 Mg/2 Ml Vial) 4 mg IVPUSH Q8H PRN PRN Reason: Nausea and Vomiting Pharmacy Consult (Consult Rx Perform Med Rec) 1 each MISCELLANE ONCE PRN PRN Reason: Consult order Pharmacy Consult (Consult Rx Etoh Phenob Im/Po) 1 each MISCELLANE ONCE PRN; Protocol PRN Reason: Consult order Sodium Chloride (0.9 % Sodium Chloride Flush 3 Ml Syringe) 3 ml IVFLUSH QSHIFT [facility] Last Admin: 12/02/21 01:24 Dose: Not Given Documented By: ALCIRA Non-Admin Reason: Patient Asleep Labs CBC & Chem 7: 12/02/21 05:16 12/02/21 05:16 Labs: Laboratory Results - last 24 hr 12/01/21 12/01/21 12/01/21 12:36 12:50 12:50 MCV 85.5 MCH 28.7 MCHC 33.6 RDW 12.1 Plt Count 315 MPV 9.1 L Immature Gran % (Auto) 0.6 H Neut % (Auto) 69.3 Lymph % (Auto) 14.5 L [place] % (Auto) 6.8 Eos % (Auto) 8.3 H Baso % (Auto) 0.5 Lymph # (Auto) 3.0 [place] # (Auto) 1.4 H Eos # (Auto) 1.8 H Baso # (Auto) 0.1 Abs Immat Gran (auto) 0.13 H Absolute Neuts (auto) 14.6 H Absolute Nucleated RBC 0.000 Nucleated RBC % (auto) 0.0 D-Dimer High Sensitivty VBG pH VBG pCO2 VBG pO2 VBG HCO3 VBG O2 Saturation VBG Base Excess Anion Gap 14 Estim Creat Clear Calc 137.1 Estimated GFR > 60 Random Glucose 237 H D Calcium 8.7 Magnesium 3.0 H Total Bilirubin 0.2 Direct Bilirubin < 0.2 AST 109 H ALT 65 H Alkaline Phosphatase 76 Total Protein 6.6 Albumin 4.2 COVID-19 (SHOAIB) Negative COVID-19 Clin Com See Note 12/01/21 12/01/21 12/01/21 12:52 14:57 19:40 MCV MCH MCHC RDW Plt Count MPV Immature Gran % (Auto) Neut % (Auto) Lymph % (Auto) [place] % (Auto) Eos % (Auto) Baso % (Auto) Lymph # (Auto) [place] # (Auto) Eos # (Auto) Baso # (Auto) Abs Immat Gran (auto) Absolute Neuts (auto) Absolute Nucleated RBC Nucleated RBC % (auto) D-Dimer High Sensitivty < 150 VBG pH 7.25 L 7.31 L VBG pCO2 61 53 VBG pO2 56 49 VBG HCO3 27 H TNP VBG O2 Saturation 79.0 75.0 VBG Base Excess -0.8 0.8 Anion Gap Estim Creat Clear Calc Estimated GFR Random Glucose Calcium Magnesium Total Bilirubin Direct Bilirubin AST ALT Alkaline Phosphatase Total Protein Albumin COVID-19 (SHOAIB) COVID-19 Clin Com 12/02/21 12/02/21 05:16 05:16 MCV 86.3 MCH 28.8 MCHC 33.3 RDW 12.3 Plt Count 325 MPV 10.0 Immature Gran % (Auto) 0.4 Neut % (Auto) 74.3 H Lymph % (Auto) 15.7 L [place] % (Auto) 8.2 Eos % (Auto) 1.0 Baso % (Auto) 0.4 Lymph # (Auto) 1.8 [place] # (Auto) 0.9 Eos # (Auto) 0.1 Baso # (Auto) 0.0 Abs Immat Gran (auto) 0.05 H Absolute Neuts (auto) 8.4 H Absolute Nucleated RBC 0.000 Nucleated RBC % (auto) 0.0 D-Dimer High Sensitivty VBG pH VBG pCO2 VBG pO2 VBG HCO3 VBG O2 Saturation VBG Base Excess Anion Gap 17 Estim Creat Clear Calc 164.2 Estimated GFR > 60 Random Glucose 118 H D Calcium 10.0 D Magnesium Total Bilirubin 0.4 Direct Bilirubin AST 117 H ALT 72 H Alkaline Phosphatase 68 Total Protein 7.0 Albumin 4.4 COVID-19 (SHOAIB) COVID-19 Clin Com Assessment and Plan (1) Acute hypoxemic respiratory failure: Status: Acute (2) Asthmaticus, status: Status: Acute (3) Transaminitis: Status: Acute Plan 26-year-old male with history of moderate persistent asthma has been experiencing exacerbation since COVID-19 diagnosis 5 weeks ago treated with paxlovid on prednisone taper (currently 5mg), ADHD, substance abuser, and opiate dependence the on methadone admitted for status asthmaticus with acute hypoxemic respiratory failure. # acute hypoxemic respiratory failure secondary to severe asthma exacerbation- improving -On 2L O2, titrate as tolerated -treatment of asthma exacerbation as below -D-Dimer negative # status asthmaticus -COVID-19 negative -moderate persistent asthma with exacerbation of symptoms ongoing since COVID-19 diagnosis 5 weeks ago on outpatient prednisone taper -Continue IV solumedrol BID -to titrate oxygen as above -DuoNebs every 4 hours while awake -guaifenesin as needed for cough # opioid dependence with ongoing substance use -continue methadone -addiction consult for ongoing fentanyl use and alcohol use # Acute alcohol withdrawal -Reported drinking 3 12 oz beers daily, however now showing signs of withdrawal -CIWA scale score of 9 on exam -phenobarb protocol initiated -Addiction consult pending # transaminitis -LFTs increased to 117/72 -hepatitis-B/C profile pending.? HIV ab/Ag pending due to history of drug abuse -Abd unremarkable #leukocytosis -trending down -reactive and recent steroid use DVT prophylaxis-Lovenox Full code Patient requires inpatient stay of at least 2 midnights due to status asthmaticus with acute hypoxemic respiratory failure requiring high-flow oxygen, IV steroids, now experiencing acute alcohol withdrawal on phenobarb per protocol. Quality Stroke Does the patient have a stroke diagnosis?: No VTE Prior VTE?: No VTE Risk Level:: Medical - moderate - high VTE Device Contraindication: Treatment Not Indicated VTE Drug Contraindication: N/A - Med Ordered
[2021-12-02] MEDS: methADONE HCl 20 MG/2 ML ORAL.CONC 100 MG PO (09:52)
[2021-12-02] MEDS: PHENobarbitaL sodium 130 MG/ML IM ONCE 234 MG IM (10:42)
[2021-12-02 13:39] LABS: Magnesium 2.1 mg/dL (1.6-2.6)
[2021-12-02] MEDS: PHENobarbitaL sodium 130 MG/ML VIAL IM Q3Hx2 175 MG IM ×2 (14:26→17:52)
--- NOTE | 2021-12-02 16:15 | MHC.CM.PN ---
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
--- NOTE | 2021-12-02 16:23 | MHC.RECOVSUP ---
Recovery Support note: Patient is a 26 year old Guyanese speaking male who presented to [facility] due to asthma exacerbation and was medically admitted. This conventional underwriter met with patient to discuss substance use and treatment options. Patient reports drinking 3 cocktails a day and that he was previously drinking up to 15 beers a day but has made a deliberate effort to cut down his consumption. Patient reports he has been consuming alcohol daily for two years and that he wants to stop drinking entirely. Discussed relapse prevention and recovery supports with patient. Patient reports he has been to AA meetings in the past and found them helpful. Patient reports he is supported by a counselor. Patient reports he has work tomorrow at 9 and is hoping to attend. Education provided regarding alcohol withdrawal symptoms and encouraged patient to remain in treatment as long as the hospitalists feel necessary. Patient acknowledged. Patient reports he was abstaining from opiate use for approximately one year however relapsed in August and has been using up to 30 bags a day since then. Patient also expresses a desire to stop using opiates but recognizes that it is easier said than done. Patient reports staying busy and working was helpful during his period of sobriety. Discussed ways patient can fill his time and he was receptive of this. Patient reports methadone maintenance was also helpful during his sobriety. Patient's methadone dose has been continued while in the hospital. Discussed recovery coaching with patient. Patient interested in having a recovery agent follow up with him while he is on the medical floor. This conventional underwriter will facilitate this. Recovery Support Team available as needed.
[2021-12-02] MEDS: 0.9 % Sodium Chloride Flush 3 ML SYRINGE IVFLUSH ×2 (17:36→21:32)
[2021-12-02] MEDS: Enoxaparin Sodium 40 MG/0.4 ML SYRINGE SUBCUT (17:36)
[2021-12-02] MEDS: PHENobarbitaL 15 MG TABLET 45 MG PO (21:30)
--- NOTE | 2021-12-02 22:07 | MHC.RECOVSUP ---
? Reason for consult:Both o? Current location:375-1? o? Identified substance use concern:? -? Support ? Intervention: o? Community resources provided o? Harm reduction discussion ? Plan: o? Follow up tomorrow? ? 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 Pt provided with RC contact.
[2021-12-03] VITALS: BP 141/81; PULSE 60; RESP 16; TEMP 36.7; O2SAT 96
[2021-12-03 03:20] VITALS: BP 144/76; PULSE 98; RESP 16; TEMP 36; O2SAT 95
[2021-12-03] MEDS: methylPREDNISolone Sod Succ 40 MG/ML VIAL IVPUSH (05:55)
--- NOTE | 2021-12-03 09:00 | PC.NURSE ---
8:00am Patient stated he wants to leave AMA, Dr Zhu notified and spoke with patient, AMA paperwork signed, IV removed, patient left accompianed by parent.
--- NOTE | 2021-12-03 10:20 | P.DS_ITS ---
DS: Providers Provider Date of Service: 12/03/21 Date of admission: 12/01/21 15:39 Primary care physician: BETTIE Steele Consults: 12/01/21 16:10 Addiction Medicine Routine Consulting Provider: Addiction Covering Reason for consultation: ongoing opiate use on methadone, alcohol abuse DS: Diagnosis Discharge Diagnosis (1) Acute hypoxemic respiratory failure: Status: Acute (2) Uncontrolled persistent asthma: Status: Acute (3) History of opioid abuse: Status: Acute (4) Alcohol use: Status: Acute DS: Summary Hospital Course Hospital Course: HPI: ?26-year-old male with history of moderate persistent asthma has been experiencing exacerbation since COVID-19 diagnosis 5 weeks ago treated with paxlovid on prednisone taper (currently 5mg), ADHD, substance abuser, and opiate dependence the on methadone presented to the ED via EMS after developing sudden onset shortness of breath while at home.? He states he did smoke marijuana last night which may have been triggering.? EMS noted on arrival patient was hypoxic with sats in the 60s, end-tidal 90s and tripoding.? He was given 2 DuoNebs, IV steroids, IV magnesium with epi.? On arrival to the ED, patient reporting feeling much better but still wheezing.? He was given additional DuoNeb and placed on high-flow oxygen.? On arrival, tachycardic to 140, tachypneic to 30 with oximetry of 92%.? CXR negative for any acute pulmonary abnormality.? WBC 21.0, stable normocytic anemia.? Renal function and electrolyte levels normal, glucose 237, magnesium 3.0, AST 109, ALT 65.? Negative for COVID-19.? He denies any sick contacts.? Since being diagnosed with COVID-19 5 weeks ago he has been experiencing an increase in shortness of breath and wheezing as well as albuterol usage.? He is now following with pulmonology who has started him on Symbicort and he is completing a prednisone taper.? He reports symptoms of shortness of breath, wheezing, and cough.? Denies any fevers, chills, abdominal pain, nausea, vomiting, lightheadedness, or chest pain. Reports 3 12 oz beers per day, last drink yesterday, denies history withdrawal. Rerports daily inh fentanyl use, last use this morning. No cigarettes. Hospital course: # acute hypoxemic respiratory failure secondary to asthma exacerbation -patient was admitted with supplemental oxygen. IV lumbago patient on outpatient prednisone taper since COVID 19 diagnosis. Patient received scheduled and as needed DuoNebs. Was maintaining normal oxygen saturation at room air prior to discharge. Patient left against medical advice prior to discharge orders and discharge med rec. Would recommend close follow-up with PCP and pulmonology and continue steroid taper. Continue home inhaler # opioid use disorder -addiction Medicine was consulted. Patient on methadone. Continue as outpatient # alcohol use disorder -patient remains phenobarb protocol was initiated in the hospital Time spent discussing smoking cessation with patient: more than 10 minutes Status at Discharge Cognitive/behavioral status at discharge: Cognitively intact Functional status at discharge: independent ambulation Overall status at discharge: patient is back to baseline Time Spent with Patient Time attestation: Total time spent providing and/or coordinating discharge services: Discharge coordination time: Less than 30 minutes Quality: Safe Use of Opioids Does Pt have an Active Cancer Diagnosis on the Problem List?: No Quality: Stroke Does the patient have a stroke diagnosis?: No Physical Exam Vital Signs: Vital Signs: Last Vital Signs Temp 96.8 F 12/03/21 03:20 Pulse 98 12/03/21 03:20 Resp 16 12/03/21 03:20 BP 144/76 H 12/03/21 03:20 Pulse Ox 95 12/03/21 03:20 O2 Del Method 12/03/21 03:20 O2 Flow Rate 3 12/02/21 03:30 BMI result Body Mass Index 23.6 Middle-aged male lying in bed in no distress Neck supple, no JVD Regular rate and rhythm, S1-S2 heard Regular breath sounds bilaterally, no wheezing or crackles appreciated Abdomen soft nontender, no guarding, no rigidity Patient is awake, alert and oriented to self, place, time and person ; no focal motor deficit Psych: Normal mood No pedal edema DS: Data Data Completed and Pending Labs on day of discharge: Laboratory Results - last 24 hr 12/02/21 05:16 Magnesium 2.1 Discharge Plan Discharge Patient Disposition: Left Against Medical Advice Discharge Diagnosis: Acute hypoxia respiratory failure secondary to asthma exacerbation Referrals: Manuel Baitsta, [facility] [Primary Care Provider] - 1 Week Discharge Medications: No Action omeprazole 20 mg capsule,delayed release(DR/EC) 20 mg PO DAILY Qty: 30 2RF albuterol sulfate 90 mcg/actuation HFA aerosol inhaler 1 puff inhalation QID PRN (Reason: shortness of breath or wheezing) 30 Days Qty: 8.5 4RF (DME) Updraft machine See Rx Instructions .Route .MEDSUPPLY Qty: 1 0RF Rx Instructions: use daily as needed methadone [Methadone Intensol] 10 mg/mL concentrate 102 mg PO DAILY Rx Instructions: [facility] budesonide-formoterol [Symbicort] 160-4.5 mcg/actuation HFA aerosol inhaler 2 puff inhalation BID montelukast 10 mg tablet 10 mg PO BEDTIME 90 Days Qty: 90 0RF albuterol sulfate 0.63 mg/3 mL solution for nebulization 0.63 mg inhalation QID PRN (Reason: shortness of breath or wheezing) 30 Days Qty: 75 0RF Discharge Orders: Discharge Order (Routine); Ordered 12/03/21 Ordered By: Cynthia Zhu Care Plan Goals: Continue steroid taper Continue home inhalers Health Concerns: Opioid use disorder Persistent asthma Plan of Treatment: Follow-up with PCP and recreation activities coordinator in a week Assessment: As per summary Discharge Date/Time: 12/03/21 08:00
[2021-12-04 04:49] LABS: HBS Num1 1.42 mIU/mL (0-7.99); HBc Num1 0.12 S/CO (0.00-0.79); HIV AB/AG Nonreactive (Nonreactive); HIV Num 1 0.09 S/CO (0.00-0.99); Hepatitis B Core Antibody Nonreactive (Nonreactive); Hepatitis B Surface Antigen Negative (Negative); ~HepC Num1 12.58 S/CO (0.00-0.79); ~Hepatitis B Surface Antibody NONREACTIVE (Nonreactive); ~Hepatitis C Antibody Reactive (Nonreactive)
== END 2021-12-03 08:00 | disposition left against medical advice (07) | DRG 202 ==
LOC: HO.ED 13:39 → HO.EDOVER 15:55 → HO.S3 19:38
PROVIDERS: Admitting Provider Physician Assistant; Emergency Provider Emergency Medicine; PCP Nurse Practitioner Family; Visit Provider Student in an Organized Health Care Education/Training Program
DX: J45.42 Moderate persistent asthma with status asthmaticus (principal); J96.01 Acute respiratory failure with hypoxia; F10.139 Alcohol abuse with withdrawal, unspecified; D72.829 Elevated white blood cell count, unspecified; F90.9 Attention-deficit hyperactivity disorder, unspecified type; U09.9 Post COVID-19 condition, unspecified; Z20.822 Contact with and (suspected) exposure to COVID-19; Z87.891 Personal history of nicotine dependence; Z79.899 Other long term (current) drug therapy
CPT/HCPCS: 36415; 71045; 76705; 80048; 80053; 80076; 82803; 83735; 85025; 85379; 86704; 86706; 86803; 87340; 87389; 87635; 93005; 94640; 99285; J1650; J2560; J2920

== ENCOUNTER → 2021-12-14 14:08 | Outpatient (BNVA) | payer OTHER, MEDICAID, SELFPAY | PROVIDERS: PCP Nurse Practitioner Family; Visit Provider Internal Medicine | DX: J45.901 Unspecified asthma with (acute) exacerbation (principal); U09.9 Post COVID-19 condition, unspecified; Z79.52 Long term (current) use of systemic steroids | CPT/HCPCS: 96372; J2930 ==

== ENCOUNTER 2022-03-29 15:47 | Outpatient (REF) | payer OTHER, MEDICAID, SELFPAY ==
--- NOTE | ~2022-03-29 | XR_ITS ---
EXAMINATION: XR CHEST CLINICAL INFORMATION: Asthma. COMPARISON: Chest x-ray 12/01/2021 TECHNIQUE: 2 views of the chest were obtained. FINDINGS: No significant abnormality is noted involving the heart, lungs, mediastinum, bony thorax or soft tissues. XR/XR chest 2V IMPRESSION: Unremarkable examination.
== END 2022-03-29 15:48 | disposition home or self-care (01) ==
LOC: HO.HMGCX 15:47
PROVIDERS: PCP Nurse Practitioner Family; Visit Provider Physician Assistant Medical
DX: J45.909 Unspecified asthma, uncomplicated (principal)
CPT/HCPCS: 71046

== ENCOUNTER 2023-03-01 10:50 | Outpatient (AMB) | payer MEDICAID, SELFPAY ==
[2023-03-01 12:30] VITALS: BP 110/68; PULSE 82; TEMP 36.3; O2SAT 96; BMI 20.9
--- NOTE | 2023-03-01 12:30 | MHC.OFFWIV ---
Intake Vital Signs 03/01/23 12:30 Height 5 ft 11 in Weight 150 lb BMI 20.9 BP 110/68 Blood Pressure Location Lt brachial Position Sitting Pulse 82 Pulse Source Pulse Oximeter Temp 97.3 F Temp Source Temporal Artery Scan Pulse Oximetry (%) 96 Oxygen Delivery Method Room Air Intake Visit Reasons: EST/irregular bowel movements(lobby masked) Intake Note: pt is here today for irregular bowel movement started 2 weeks ago Patient Tobacco Use Status: Former Tobacco user Allergies No Known Allergies [No Known Allergies*] Allergy (Verified 03/01/23 12:34) Do you need a note to return to daycare/school/sports/work: No HPI HPI Comments History of Present Illness Details 27 y/o male patient presents to walk in clinic with c/o changes on his Fecal calliber. Pt shows me a picture of his Stool, that look thin/ribbon like texture. Denies constipation., diarrhea, blood in the stool. H/o Gastritis, asking for Omeprazole. PFSH Medical History Asthma Attention deficit hyperactivity disorder (ADHD) Breast mass in male Elevated LFTs Gastritis History of opioid abuse Post-COVID syndrome Substance abuse Transaminitis Surgical History No pertinent past surgical history Family History Father History of kidney transplant Heart problem Diabetes mellitus Mother Smoker ETOH abuse Maternal Grandmother Breast cancer Maternal Grandfather CVD (cardiovascular disease) Paternal Grandmother No problems noted. 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 Current occupational exposures/hazards: No Cognitive needs: No Hearing needs: No Vision needs: No Review of Systems Const All systems reviewed & are unremarkable except as noted in HPI and below Physical Exam Vital Signs: Last Vital Signs Temp 97.3 F 03/01/23 12:30 Pulse 82 03/01/23 12:30 BP 110/68 03/01/23 12:30 Pulse Ox 96 03/01/23 12:30 Oxygen Delivery Method Room Air 03/01/23 12:30 BMI result Body Mass Index 20.9 Const General: no acute distress GI Inspection: Yes normal to inspection Palpation (GI): Soft to palpation, nontender, no guarding, not rigid and No hepatosplenomegaly present Auscultation: normal bowel sounds Assessment & Plan Assessment & Plan (1) Abnormal stool caliber: Code(s): R19.5 - Other fecal abnormalities Plan: - Increased fiber in diet - Hydrate with plenty of water - Eat balanced diet Medications: New psyllium husk (Metamucil) 1 tbsp PO DAILY 660 grams 0RF R19.5 - Other fecal abnormalities omeprazole 20 mg PO BID 60 caps 0RF K29.70 - Gastritis, unspecified, without bleeding Coding Level of Care Code Est Pt Level 2 (95068) Diagnoses Abnormal stool caliber R19.5 Time Spent (min) 10
== END 2023-03-01 13:17 | disposition home or self-care (01) ==
PROVIDERS: PCP Nurse Practitioner Family; Visit Provider Nurse Practitioner Family
DX: R19.5 Other fecal abnormalities (principal)
CPT/HCPCS: 99212

== ENCOUNTER 2023-05-31 23:38 | Emergency (ER) | payer MEDICAID, SELFPAY ==
--- NOTE | 2023-05-31 | ECG_ITS ---
Test Reason : CP Blood Pressure : / mmHG Vent. Rate : 105 BPM Atrial Rate : 105 BPM P-R Int : 140 ms QRS Dur : 098 ms QT Int : 350 ms P-R-T Axes : 053 072 039 degrees QTc Int : 462 ms Sinus tachycardia Otherwise normal ECG When compared with ECG of 01-DEC-2021 12:33, No significant changes seen Referred By: Generic ED Physician Electronically Signed By:EDGAR CAMARGO
--- NOTE | 2023-05-31 23:48 | MHC.EDTECH ---
EKG taken per order and signed by provider.
[2023-06-01 00:12] VITALS: BP 141/82; PULSE 84; RESP 18; TEMP 36.9; O2SAT 98; BMI 21.3
--- NOTE | 2023-06-01 00:45 | MHC.EDTECH ---
Brought to triage area,labs drawn and sent to lab.
[2023-06-01 00:49] LABS: MANUAL DIFF FLAG NO
[2023-06-01 00:52] LABS: Basophils Absolute Auto 0.1 X10*3/uL (0.0-0.2); Basophils Percent Auto 0.7 % (0-2); Eosinophils Absolute Auto 0.4 X10*3/uL (0.0-0.4); Eosinophils Percent Auto 4.2 % (0-4); Hematocrit 37.3 % (42.0-52.0); Hemoglobin 12.9 g/dl (14.0-18.0); Imm Gran Abs Auto 0.03 X10*3/uL (0.00-0.03); Imm Gran Pct Auto 0.3 % (0.0-0.4); Lymphocytes Absolute Auto 2.8 X10*3/uL (1.2-4.9); Lymphocytes Percent Auto 29.5 % (20-40); Mean Corpuscular HGB Conc 34.6 g/dl (31.0-36.0); Mean Corpuscular Hemoglobin 30.4 pg (27.0-33.0); Monocytes Absolute Auto 0.9 X10*3/uL (0.1-1.2); Monocytes Percent Auto 9.4 % (2-11); Neutrophils Absolute Auto 5.4 x10*3/uL (2.0-8.3); Neutrophils Percent Auto 55.9 % (45-73); Platelet Count 254 X10*3/uL (160-400); Red Blood Count 4.24 X10*6/uL (4.60-5.80); Red Cell Distribution Width 11.9 % (11.0-16.0); White Blood Count 9.6 X10*3/uL (4.8-10.8)
[2023-06-01 00:53] LABS: Delay - Chemistry DELAY
[2023-06-01 02:00] LABS: Troponin-I High Sensitivity < 2.7 ng/L (<3.5-35.0)
[2023-06-01 02:19] LABS: Alanine Aminotransferase 22 U/L (0-40); Albumin Level 4.5 g/dL (3.5-5.0); Alkaline Phosphatase 81 U/L (39-117); Anion Gap 12 (12-20); Aspartate Amino Transferase 28 U/L (5-37); Bilirubin Total 0.3 mg/dL (0.0-1.0); Blood Urea Nitrogen 9 mg/dL (9-16); Calcium 9.8 mg/dL (8.4-10.2); Carbon Dioxide 27 mmol/L (22-29); Chloride 104 mmol/L (96-108); Creatinine Clr Calc Pharmacy 154.6; Estimated Glomerular Filt Rate > 60; Glucose Random 92 mg/dL (60-115); Potassium 3.7 mmol/L (3.3-5.1); Sodium 139 mmol/L (135-145); Total Protein 7.5 g/dL (6.5-8.0)
== END 2023-06-01 03:01 | disposition left against medical advice (07) ==
LOC: HO.ED 06-01 02:58
PROVIDERS: Emergency Provider Emergency Medicine
DX: R07.9 Chest pain, unspecified (principal)
CPT/HCPCS: 36415; 80053; 84484; 85025; 93005; 99283

== ENCOUNTER → 2023-05-31 23:41 | Outpatient (BNV) | payer MEDICAID, SELFPAY | PROVIDERS: Emergency Provider Emergency Medicine; Visit Provider Internal Medicine | DX: R00.0 Tachycardia, unspecified (principal) | CPT/HCPCS: 93010 ==

== ENCOUNTER 2023-06-01 07:37 | Emergency (ER) | payer MEDICAID, SELFPAY ==
--- NOTE | 2023-06-01 | ECG_ITS ---
Test Reason : NUMBNESS Blood Pressure : / mmHG Vent. Rate : 095 BPM Atrial Rate : 095 BPM P-R Int : 140 ms QRS Dur : 090 ms QT Int : 398 ms P-R-T Axes : 068 078 058 degrees QTc Int : 500 ms Normal sinus rhythm Prolonged QT Abnormal ECG When compared with ECG of 31-MAY-2023 23:41, QT has lengthened Referred By: Generic ED Physician Electronically Signed By:EDGAR CAMARGO
--- NOTE | ~2023-06-01 | CT_ITS ---
EXAMINATION: CT CHEST ANGIOGRAM PE PROTOCOL CLINICAL INFORMATION: , Reason for Exam R/O air embolism, shooting air bubble in left arm COMPARISON: None TECHNIQUE: Volumetric imaging was performed through the chest. Reformatted coronal and sagittal imaging was performed. 3-D MIP images performed at a dedicated separate workstation. This CT examination was performed using dose optimization techniques as appropriate, variously including the following: *Automated exposure control *Adjustment of mA and/or kV according to patient size (this includes techniques or standardized protocols for targeted exams where dose is matched to indication/reason for exam; i.e. extremities or head) *Use of iterative reconstruction technique CONTRAST: 65 ml of Omni 350 injected DLP: 206 FINDINGS: PULMONARY ARTERIES: There is proper opacification of the pulmonary artery and its main branches. No CT evidence of pulmonary emboli. , Main pulmonary artery LINES/TUBES: None LUNGS: Lung Parenchyma: There is no CT evidence of significant lung parenchymal disease. Lung Nodules:There are no significant lung nodules. AIRWAYS: Trachea and bronchi are normal. PLEURA: No pleural effusion or pneumothorax. MEDIASTINUM AND TREY: The visualized thyroid gland is unremarkable. No mediastinal, hilar or axillary lymphadenopathy. There is no mediastinal mass. VESSELS: Thoracic aorta is normal in size. HEART AND PERICARDIUM: Heart is normal in size. There is no pericardial effusion. No coronary calcifications. CHEST WALL, LOWER NECK, SURROUNDING SOFT TISSUES: Normal VISUALIZED ABDOMEN: Unremarkable BONES: The visualized bony thorax is within normal limits. CT/CT angio chest PE protocol IMPRESSION: 1. No CT evidence of pulmonary emboli. 2. Lungs are clear. No pleural effusion.
[2023-06-01 07:40] VITALS: BP 152/79; PULSE 98; RESP 18; TEMP 36.9; O2SAT 97; BMI 21.3
[2023-06-01 08:02] LABS: MANUAL DIFF FLAG NO
[2023-06-01 08:08] VITALS: BP 145/92; PULSE 100; RESP 18; TEMP 36.7; O2SAT 97
--- NOTE | 2023-06-01 08:09 | ED_ITS ---
HPI - Extremity Problem General Chief complaint: Extremity Injury, Upper Stated complaint: Left arm numb Time Seen by Provider: 06/01/23 08:03 Source: patient and family (Grandmother) Mode of arrival: ambulatory Limitations: no limitations History of Present Illness HPI Narrative: A 27-year-old male history of IVDA who shot heroin in his left arm noticed a small air bubble in the syringe 15 minutes later patient started to have numbness in the left arm and mild chest pain that all resolved 15 minutes after, patient presented to the ED but he left before been evaluated and seen because his symptoms improved, return with his grandmother today for evaluation of persistent of left arm numbness. Currently patient has no CP, no SOB, no fever, no chills, no numbness, no weakness. Related Data Home Medications ?Medication ?Instructions ?Recorded ?Confirmed methadone 10 mg/mL oral 102 mg PO DAILY 11/30/21 05/10/22 concentrate (Methadone Intensol) Previous Rx's ?Medication ?Instructions ?Recorded Updraft machine #1 ea 11/27/21 albuterol sulfate 0.63 mg/3 mL 0.63 mg (3 mL) inhalation QID PRN 05/10/22 solution for nebulization shortness of breath or wheezing 30 days #90 mL psyllium husk 3.4 gram/5.4 gram 1 tbsp PO DAILY #660 grams 03/01/23 oral powder (Metamucil) omeprazole 20 mg capsule,delayed 20 mg PO BID 90 days #180 caps 04/08/23 release albuterol sulfate 90 mcg/actuation 2 puff inhalation QID PRN for 04/21/23 aerosol inhaler (Ventolin HFA) wheezing #18 ea fluticasone furoate 200 1 inh inhalation DAILY 30 days #60 04/25/23 mcg-vilanterol 25 mcg/dose ea inhalation powder (Breo Ellipta) Allergies Allergy/AdvReac Type Severity Reaction Status Date / Time No Known Allergies Allergy Verified 06/01/23 07:45 [No Known Allergies*] Review of Systems 2 Review of Systems: All other systems are reviewed and are negative Constitutional: Reports as per HPI and Reports no additional constitutional complaints Eyes: Reports as per HPI and Reports no additional eye complaints Reports system reviewed and no additional complaints, except as documented Cardiovascular: Reports as per HPI and Reports no additional cardiovascular complaints Respiratory: Reports as per HPI and Reports no additional respiratory complaints Gastrointestinal: Reports as per HPI and Reports no additional gastrointestinal complaints Genitourinary: Reports no additional female genitourinary complaints Musculoskeletal: Reports no additional musculoskeletal complaints Skin/Breast: Reports system reviewed and no additional complaints, except as docu Psychiatric: Reports no additional psychiatric complaints Endocrine: Reports no additional endocrine complaints Hematologic/Lymphatic: Reports no additional hematologic/lymphatic complaints Allergic/Immunologic: Reports no additional allergic/immunologic complaints Reports system reviewed and no additional complaints, except as documented and Reports Abnormal speech present PENDING SALE TO [facility] Past Medical History Medical History Substance abuse Transaminitis Post-COVID syndrome Breast mass in male Asthma History of opioid abuse Attention deficit hyperactivity disorder (ADHD) Elevated LFTs Gastritis Surgical History No pertinent past surgical history Family History Family History Father History of kidney transplant Heart problem Diabetes mellitus Mother Smoker ETOH abuse Maternal Grandmother Breast cancer Maternal Grandfather CVD (cardiovascular disease) Paternal Grandmother No problems noted. Paternal Grandfather Diabetes mellitus Paternal Uncle Substance use disorder Maternal Uncle Substance use disorder Family/Other Substance use disorder Social History Social History Household Members: Family Housing: House Do you presently have visiting nurse or other home services: No Alcohol intake: current Alcohol intake frequency: 3 or more drinks per day Alcohol type: beer Patient Tobacco Use Status: Former Tobacco user Tobacco use type: Cigarette Smoked in Last 30 Days: No e-Cigarette/Vaping Use: Never Used Second Hand Smoke Exposure: No Use of substances other than those prescribed or required for medical reasons: Yes Substance Use Type: Heroin Substance Use Frequency: Daily Last Used Substance: Hours (ago) Advance Directives: No Advance Directives Information Provided: Yes service: No Current occupational status: employed 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 Blood pressure elevated. Heart rate normal. Respiratory rate normal. Temperature normal. Oxygen saturation normal. Appearance: Alert. Oriented X3. No acute distress. Head: Normal external exam. Normocephalic. Atraumatic. No Gagnon signs noted. No raccoon eyes noted Eyes: PERRLA. EOMI. Conjunctiva and sclera normal. Eyelids normal. ENT: TM's Normal. Pharynx normal. Uvula midline. Moist mucous membranes. No trismus noted. No drooling noted. No muffled voice noted. Neck: Normal inspection. Neck supple. FROM. No adenopathy. Thyroid Normal. No meningeal signs. No neck mass noted. CVS: Normal heart rate and rhythm. Heart sound normal. No murmurs noted. Pulses normal throughout. Respiratory: No respiratory distress. Painless inspiration. Breath sounds normal. No wheezes/rales/rhonchi noted. Chest nontender. No accessory muscle usage noted or decreased air movement noted. Abdomen: Soft and nontender. Bowel sounds normal in all 4 quadrants. No distention noted. No organomegaly noted. No visible injury noted. Back: No CVA tenderness. Full range of motion noted. Skin: Skin warm and dry. Normal skin color. Normal skin turgor. No rashes/lesions/lacerations noted. Extremities: No lower extremity edema. Extremities exhibit normal range of motion. Extremities nontender. Neuro: Oriented X 3. Cranial nerve exam: II-XII are grossly intact No motor deficit. No sensory deficit. Reflexes normal. Course Reevaluation(s) Reevaluation #1: Patient was remained in the emergency department for close observation and monitoring, patient kept his O2 sat 97%, otherwise vital signs stable, patient had CT of the chest with IV contrast showed no air embolism. The amount of air bubble that patient described should be enough to cause air embolism, patient has no CP, no SOB, improvement of the numbness of the left arm, I discussed with the patient option of rehab patient is going to think about it. Time: 12:20 Medications Administered Discontinued Medications Generic Name Dose Route Start Last Admin Trade Name Freq PRN Reason Stop Dose Admin Sodium Chloride 1,000 mls @ 999 mls/hr 06/01/23 08:22 06/01/23 09:54 Ns IV 06/01/23 09:22 Infused .Q1H1M ONE Infusion Iohexol 100 ml 06/01/23 08:49 06/01/23 08:49 Iohexol 350 Mg/Ml 100 Ml Infus..Btl IV 06/01/23 08:50 65 ml ONCE ONE Administration Medical Decision Making Differential Diagnosis Differential Diagnoses: The differential diagnosis associated with the presentation includes (Air embolism, pneumonia, pneumothorax, lung contusion, electrolyte derangement, hypoxia, severe anemia.) Admission/Observation Consideration of admission/observation: Escalation of care including admission/observation considered Lab Data MDM Lab Attestation statement: I reviewed the patient's lab results. 06/01/23 07:57 06/01/23 07:57 Labs: Lab Results 06/01/23 06/01/23 Range/Units 07:57 12:16 WBC 7.9 (4.8-10.8) X10*3/uL RBC 4.47 L (4.60-5.80) X10*6/uL Hgb 13.7 L (14.0-18.0) g/dl Hct 39.4 L (42.0-52.0) % MCV 88.1 (80.0-98.0) fL MCH 30.6 (27.0-33.0) pg MCHC 34.8 (31.0-36.0) g/dl RDW 11.9 (11.0-16.0) % Plt Count 276 (160-400) X10*3/uL MPV 9.2 L (9.4-12.4) fL Immature Gran % (Auto) 0.3 (0.0-0.4) % Neut % (Auto) 55.5 (45-73) % Lymph % (Auto) 29.9 (20-40) % Adams % (Auto) 8.5 (2-11) % Eos % (Auto) 4.9 H (0-4) % Baso % (Auto) 0.9 (0-2) % Lymph # (Auto) 2.4 (1.2-4.9) X10*3/uL Adams # (Auto) 0.7 (0.1-1.2) X10*3/uL Eos # (Auto) 0.4 (0.0-0.4) X10*3/uL Baso # (Auto) 0.1 (0.0-0.2) X10*3/uL Abs Immat Gran (auto) 0.02 (0.00-0.03) X10*3/uL Absolute Neuts (auto) 4.4 (2.0-8.3) x10*3/uL Absolute Nucleated RBC 0.000 (0.0-0.012) X10*3/uL Nucleated RBC % (auto) 0.0 (0.0-0.2) /100WBC Sodium 141 (135-145) mmol/L Potassium 3.7 (3.3-5.1) mmol/L Chloride 104 (96-108) mmol/L Carbon Dioxide 27 (22-29) mmol/L Anion Gap 14 (12-20) BUN 8 L (9-16) mg/dL Creatinine 0.69 (0.5-1.4) mg/dL Estim Creat Clear Calc 145.7 Estimated GFR > 60 Random Glucose 101 (60-115) mg/dL Calcium 9.8 (8.4-10.2) mg/dL Total Bilirubin 0.4 (0.0-1.0) mg/dL AST 29 (5-37) U/L ALT 23 (0-40) U/L Alkaline Phosphatase 81 (39-117) U/L Troponin I High Sens < 2.7 (<3.5-35.0) ng/L B-Natriuretic Peptide < 10 (<100) pg/mL Total Protein 7.9 (6.5-8.0) g/dL Albumin 4.8 (3.5-5.0) g/dL Urine Color Yellow Urine Appearance Clear Urine pH 7.0 (5.0-9.0) Ur Specific [place] >= 1.030 H (1.005-1.025) Urine Protein Negative (Neg-Trace) mg/dL Urine Glucose (UA) Negative (Negative) mg/dL Urine Ketones Negative (Negative) mg/dL Urine Blood Negative (Negative) Urine Nitrite Negative (Negative) Ur Leukocyte Esterase Negative (Negative) Urine RBC 0-2 (0-2) /HPF Urine WBC 0-5 (0-5) /HPF Ur Squamous Epith Cells 0-2 (0-2) /HPF Urine Bacteria None Seen (None Seen) Hyaline Casts 0-2 (0-2) /LPF Independent Interpretation I performed an independent interpretation of an: CT Scan (CT angio of the chest:1. No CT evidence of pulmonary emboli. 2. Lungs are clear. No pleural effusion. ) Radiology Impression Discussion of test interpretation with radiology: I have reviewed the radiologist's reading. Chronic Conditions Patient?s care impacted by: Other (IVDA) Discharge Plan Discharge Clinical Impression: Substance abuse, IVDU (intravenous drug user) Patient Disposition: Home, Self-Care Instructions: Polysubstance Abuse (ED) Prescriptions: No Action (DME) Updraft machine See Rx Instructions .Route .MEDSUPPLY Qty: 1 0RF Rx Instructions: use daily as needed omeprazole 20 mg capsule,delayed release(DR/EC) 20 mg PO BID 90 Days Qty: 180 1RF albuterol sulfate [Ventolin HFA] 90 mcg/actuation HFA aerosol inhaler 2 puff inhalation QID PRN (Reason: for wheezing) Qty: 18 0RF fluticasone furoate-vilanterol [Breo Ellipta] 200-25 mcg/dose blister with device 1 inh inhalation DAILY 30 Days Qty: 60 1RF methadone [Methadone Intensol] 10 mg/mL concentrate 102 mg PO DAILY Rx Instructions: [facility] albuterol sulfate 0.63 mg/3 mL solution for nebulization 0.63 mg inhalation QID PRN (Reason: shortness of breath or wheezing) 30 Days Qty: 90 1RF Metamucil 3.4 gram/5.4 gram powder 1 tbsp PO DAILY Qty: 660 0RF Print Language: Setswana
--- NOTE | 2023-06-01 08:10 | PC.NURSE ---
Pt coming from home, reports left arm numbness after he injected heroin with an airbubble around 1030PM. Pt denies pain, only reports numbness sensation. Pt reports daily heroin use, injects. Also reports daily alcohol use, 12 pack of beer a day, last use last night, no hx of withdrawals per pt. Pt denies SOB, CP, fevers, cough, N/V/D. CSMs intact in left arm. Pt alert and oriented, breathing even and unlabored, skin WNL. VSS, resting in bed. No outward distress noted.
[2023-06-01 08:16] LABS: Basophils Absolute Auto 0.1 X10*3/uL (0.0-0.2); Basophils Percent Auto 0.9 % (0-2); Eosinophils Absolute Auto 0.4 X10*3/uL (0.0-0.4); Eosinophils Percent Auto 4.9 % (0-4); Hematocrit 39.4 % (42.0-52.0); Hemoglobin 13.7 g/dl (14.0-18.0); Imm Gran Abs Auto 0.02 X10*3/uL (0.00-0.03); Imm Gran Pct Auto 0.3 % (0.0-0.4); Lymphocytes Absolute Auto 2.4 X10*3/uL (1.2-4.9); Lymphocytes Percent Auto 29.9 % (20-40); Mean Corpuscular HGB Conc 34.8 g/dl (31.0-36.0); Mean Corpuscular Hemoglobin 30.6 pg (27.0-33.0); Mean Corpuscular Volume 88.1 fL (80.0-98.0); Mean Platelet Volume 9.2 fL (9.4-12.4); Monocytes Absolute Auto 0.7 X10*3/uL (0.1-1.2); Monocytes Percent Auto 8.5 % (2-11); Neutrophils Absolute Auto 4.4 x10*3/uL (2.0-8.3); Neutrophils Percent Auto 55.5 % (45-73); Platelet Count 276 X10*3/uL (160-400); Red Blood Count 4.47 X10*6/uL (4.60-5.80); Red Cell Distribution Width 11.9 % (11.0-16.0); White Blood Count 7.9 X10*3/uL (4.8-10.8)
[2023-06-01 08:22] LABS: Alanine Aminotransferase 23 U/L (0-40); Albumin Level 4.8 g/dL (3.5-5.0); Alkaline Phosphatase 81 U/L (39-117); Anion Gap 14 (12-20); Aspartate Amino Transferase 29 U/L (5-37); Bilirubin Total 0.4 mg/dL (0.0-1.0); Blood Urea Nitrogen 8 mg/dL (9-16); Calcium 9.8 mg/dL (8.4-10.2); Carbon Dioxide 27 mmol/L (22-29); Chloride 104 mmol/L (96-108); Creatinine Clr Calc Pharmacy 145.7; Estimated Glomerular Filt Rate > 60; Glucose Random 101 mg/dL (60-115); Potassium 3.7 mmol/L (3.3-5.1); Sodium 141 mmol/L (135-145); Total Protein 7.9 g/dL (6.5-8.0)
[2023-06-01 08:32] LABS: Troponin-I High Sensitivity < 2.7 ng/L (<3.5-35.0)
[2023-06-01] MEDS: 0.9 % Sodium Chloride 1,000 ML 999 ML IV (08:34)
[2023-06-01] MEDS: iohexoL 350 MG/ML 100 ML INFUS..BTL IV (08:49)
[2023-06-01 08:59] LABS: B Type Natriuretic Peptide < 10 pg/mL (<100)
[2023-06-01 09:53] VITALS: BP 125/71; PULSE 74; RESP 16; TEMP 36.6; O2SAT 97
[2023-06-01 12:25] VITALS: BP 111/73; PULSE 53; RESP 20; O2SAT 95
[2023-06-01 12:32] LABS: Appearance Urine Clear; Color Urine Yellow; Glucose Urine UA Negative (Negative); Leukocyte Esterase Urine Negative (Negative); Nitrite Urine Negative (Negative); Specific Gravity - Urine >= 1.030 (1.005-1.025); Urine Blood Negative (Negative); Urine Ketones Negative (Negative); Urine Protein Negative (Neg-Trace)
[2023-06-01 12:35] LABS: Bacteria Urine None Seen (None Seen); Hyaline Casts Urine 0-2 /LPF (0-2); RBC Urine 0-2 /HPF (0-2); Squamous Epithelial Cell Urine 0-2 /HPF (0-2); WBC Urine 0-5 /HPF (0-5)
[2023-06-01 12:55] VITALS: BP 111/73; PULSE 53; RESP 20; TEMP 36.7; O2SAT 95
== END 2023-06-01 12:55 | disposition home or self-care (01) ==
PROVIDERS: Emergency Provider Emergency Medicine; PCP Nurse Practitioner Family
DX: R20.0 Anesthesia of skin (principal); R07.9 Chest pain, unspecified; F19.10 Other psychoactive substance abuse, uncomplicated; F11.20 Opioid dependence, uncomplicated; F90.9 Attention-deficit hyperactivity disorder, unspecified type; Z79.899 Other long term (current) drug therapy
CPT/HCPCS: 36415; 71275; 80053; 81001; 83880; 84484; 85025; 93005; 96360; 99284; 99285; Q9967

== ENCOUNTER → 2023-06-01 07:50 | Outpatient (BNV) | payer MEDICAID, SELFPAY | PROVIDERS: Emergency Provider Emergency Medicine; PCP Nurse Practitioner Family; Visit Provider Internal Medicine | DX: R94.31 Abnormal electrocardiogram [ECG] [EKG] (principal) | CPT/HCPCS: 93010 ==

== ENCOUNTER 2023-11-08 20:22 | Emergency (ER) | payer MEDICAID, SELFPAY ==
--- NOTE | ~2023-11-08 | XR_ITS ---
EXAMINATION: XR HAND, RIGHT CLINICAL INFORMATION: Left hand pain and trauma. COMPARISON: None available. TECHNIQUE: PA, lateral, and oblique views of the right hand. FINDINGS: Exam is partially limited given the patient's flexed position of the fingers. The bones and soft tissues are normal. No fracture. Alignment is anatomic. Joint spaces are maintained. No erosions or soft tissue calcifications. XR/XR hand RT min 3V IMPRESSION: Normal right hand. Electronically signed by: Antoni Clancy MD 11/09/2023 07:33 AM EDT RP
[2023-11-08 20:31] VITALS: PULSE 122
[2023-11-08 20:52] VITALS: BP 118/89; PULSE 100; RESP 20; TEMP 37.3; O2SAT 94; BMI 22.8
--- NOTE | 2023-11-08 20:52 | PC.NURSE ---
change coordinator complete belongings in dec
[2023-11-08 21:04] LABS: Appearance Urine Cloudy; Color Urine Dark Yellow; Glucose Urine UA Negative (Negative); Leukocyte Esterase Urine Negative (Negative); Nitrite Urine Negative (Negative); PH 5.5 (5.0-9.0); Specific Gravity - Urine >= 1.030 (1.005-1.025); UMIC TRIGGER UACC YES; Urine Blood Large (3+) (Negative); Urine Ketones Trace mg/dL (Negative); Urine Protein 100 (2+) mg/dL (Neg-Trace)
[2023-11-08 21:15] LABS: Amphetamine Screen Urine Not Detected (Not Detect); Barbiturates, Urine Not Detected (Not Detect); Benzodiazepines Screen Urine Not Detected (Not Detect); Buprenorphine Scr Not Detected (Not Detect); Cannabinoid Screen Urine Not Detected (Not Detect); Cocaine Screen Urine POSITIVE (Not Detect); Fentanyl, urine POSITIVE (Not Detect); Methadone Screen, Urine Positive (Not Detect); Opiate Screen Urine POSITIVE (Not Detect); Oxycodone Screen Urine Not Detected (Not Detect); Phencyclidine Screen Urine Not Detected (Not Detect)
[2023-11-08 21:18] LABS: Bacteria Urine None Seen (None Seen); Hyaline Casts Urine >20 /LPF (0-2); RBC Urine 0-2 /HPF (0-2); Squamous Epithelial Cell Urine 0-2 /HPF (0-2); WBC Urine 0-5 /HPF (0-5)
[2023-11-08 21:45] VITALS: PULSE 89; RESP 16; O2SAT 94
--- NOTE | 2023-11-08 21:47 | PC.NURSE ---
pt resting comfortably with eyes closed, breathing even and unlabored. pt placed on O2 monitor. 95%. girlfriend at bedside
[2023-11-08 22:12] LABS: MANUAL DIFF FLAG NO
[2023-11-08 22:13] LABS: Basophils Absolute Auto 0.1 X10*3/uL (0.0-0.2); Basophils Percent Auto 0.7 % (0-2); Eosinophils Absolute Auto 0.1 X10*3/uL (0.0-0.4); Hemoglobin 12.6 g/dl (14.0-18.0); Imm Gran Abs Auto 0.05 X10*3/uL (0.00-0.03); Imm Gran Pct Auto 0.4 % (0.0-0.4); Lymphocytes Absolute Auto 2.1 X10*3/uL (1.2-4.9); Lymphocytes Percent Auto 15.2 % (20-40); Mean Corpuscular HGB Conc 34.1 g/dl (31.0-36.0); Mean Corpuscular Volume 85.1 fL (80.0-98.0); Mean Platelet Volume 9.4 fL (9.4-12.4); Monocytes Absolute Auto 1.3 X10*3/uL (0.1-1.2); Monocytes Percent Auto 9.7 % (2-11); Neutrophils Absolute Auto 9.9 x10*3/uL (2.0-8.3); Platelet Count 279 X10*3/uL (160-400); Red Blood Count 4.35 X10*6/uL (4.60-5.80); Red Cell Distribution Width 12.1 % (11.0-16.0); White Blood Count 13.5 X10*3/uL (4.8-10.8)
[2023-11-08 22:25] LABS: Lactic Acid 1.5 mmol/L (0.5-2.0)
[2023-11-08 22:31] LABS: Alanine Aminotransferase 49 U/L (0-40); Albumin Level 4.4 g/dL (3.5-5.0); Alkaline Phosphatase 112 U/L (39-117); Anion Gap 15 (12-20); Aspartate Amino Transferase 143 U/L (5-37); Bilirubin Total 0.8 mg/dL (0.0-1.0); Blood Urea Nitrogen 19 mg/dL (9-16); Calcium 9.3 mg/dL (8.4-10.2); Carbon Dioxide 21 mmol/L (22-29); Chloride 108 mmol/L (96-108); Creatinine Clr Calc Pharmacy 143.6; Estimated Glomerular Filt Rate > 60; Ethanol 102 mg/dL; Glucose Random 87 mg/dL (60-115); Potassium 3.9 mmol/L (3.3-5.1); Sodium 140 mmol/L (135-145)
--- NOTE | 2023-11-08 23:08 | ED_ITS ---
HPI - General Adult General Chief complaint: ETOH/Substance Use Stated complaint: Opiate withdrawal, ETOH, highly agitated Time Seen by Provider: 11/08/23 22:09 Source: EMS Limitations: other (Intoxication) History of Present Illness ED Provider: Destiney Maldonado PA-C HPI narrative: 27-year-old male with a history of polysubstance abuse, alcohol use disorder presents with left hand pain. EMS was called to his parent's home initially due to the patient's erratic behaviors. He has been consuming alcohol, actively using multiple substances. At 1 point he was running out into the street without his pants on. In regard to the left hand pain, unclear what the mechanism of injury was. History limited as the patient is intoxicated. Related Data Home Medications ?Medication ?Instructions ?Recorded ?Confirmed methadone 10 mg/mL oral 125 mg PO DAILY 11/30/21 11/09/23 concentrate (Methadone Intensol) Previous Rx's ?Medication ?Instructions ?Recorded Updraft machine #1 ea 11/27/21 albuterol sulfate 0.63 mg/3 mL 0.63 mg (3 mL) inhalation QID PRN 05/10/22 solution for nebulization shortness of breath or wheezing 30 days #90 mL psyllium husk 3.4 gram/5.4 gram 1 tbsp PO DAILY #660 grams 03/01/23 oral powder (Metamucil) omeprazole 20 mg capsule,delayed 20 mg PO BID 90 days #180 caps 04/08/23 release albuterol sulfate 90 mcg/actuation 2 puff inhalation QID PRN for 04/21/23 aerosol inhaler (Ventolin HFA) wheezing #18 ea fluticasone furoate 200 1 inh inhalation DAILY 30 days #60 04/25/23 mcg-vilanterol 25 mcg/dose ea inhalation powder (Breo Ellipta) Allergies Allergy/AdvReac Type Severity Reaction Status Date / Time No Known Allergies Allergy Verified 11/08/23 20:57 [No Known Allergies*] Review of Systems 2 Review of Systems: Unable to obtain as the patient is intoxicated Yes all other systems are reviewed and are negative [facility] Past Medical History Attestation statement: The following information was validated with the patient. Medical History Substance abuse Transaminitis Post-COVID syndrome Breast mass in male Asthma History of opioid abuse Attention deficit hyperactivity disorder (ADHD) Elevated LFTs Gastritis Surgical History No pertinent past surgical history Family History Family History Father History of kidney transplant Heart problem Diabetes mellitus Mother Smoker ETOH abuse Maternal Grandmother Breast cancer Maternal Grandfather CVD (cardiovascular disease) Paternal Grandmother No problems noted. Paternal Grandfather Diabetes mellitus Paternal Uncle Substance use disorder Maternal Uncle Substance use disorder Family/Other Substance use disorder Social History Social History Household Members: Family Housing: House Do you presently have visiting nurse or other home services: No Alcohol intake: current Alcohol intake frequency: 3 or more drinks per day Alcohol type: beer Patient Tobacco Use Status: Former Tobacco user Tobacco use type: Cigarette Smoked in Last 30 Days: No e-Cigarette/Vaping Use: Never Used Second Hand Smoke Exposure: No Use of substances other than those prescribed or required for medical reasons: No Substance Use Type: Heroin Advance Directives: No Advance Directives Information Provided: No service: No Current occupational status: employed 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 Current occupational exposures/hazards: No Cognitive needs: No Hearing needs: No Vision needs: No Physical Exam ED Vital Signs: Vital Signs - 24 hr 11/09/23 13:20 11/09/23 14:27 11/09/23 16:00 Temperature 97.8 F 97.0 F Pulse Rate 64 73 58 Respiratory Rate 14 17 16 Blood Pressure 126/67 121/61 128/72 Pulse Oximetry 93 97 95 Oxygen Delivery Method Room Air Room Air 11/09/23 19:58 11/09/23 22:00 11/10/23 02:26 Temperature 98.1 F 98.2 F 97.3 F Pulse Rate 62 73 74 Respiratory Rate 13 16 14 Blood Pressure 104/52 L 124/52 L 129/66 Pulse Oximetry 93 92 96 Oxygen Delivery Method Room Air Room Air Room Air 11/10/23 06:40 11/10/23 07:04 Temperature 98.0 F 98.0 F Pulse Rate 62 62 Respiratory Rate 12 12 Blood Pressure 123/74 123/74 Pulse Oximetry 95 95 Oxygen Delivery Method Room Air Room Air BMI result Body Mass Index 22.8 Const Other: Patient appears intoxicated, he is extremely restless, flailing on the bed at times, he just can not settle, overall disheveled Orientation/consciousness: patient oriented x3 Resp Effort & Inspection: normal respiratory effort Cardio Other: Normal peripheral perfusion Skin Other: Warm dry no rash Neuro General: patient oriented x3, no focal motor deficits and CN's II-XI intact bilaterally Extrem Other: Swelling noted over the dorsum of the right hand with overlying ecchymosis, exam was limited as the patient is not cooperating, he keeps pulling his hand away, he is moving all digits, again this is not a full exam, sensation intact, no overlying erythema or warmth, no purulent drainage noted, no open wounds Psych Other: Intoxicated Course Course Course Narrative: 11/10/2023 12:00 Received call from lab, 1/2 sets of blood cultures positive for gram + rods. Attempted to contact patient at number listed to discuss symptoms. No answer/unable to leave VM. Reevaluation(s) Reevaluation #1: Having to give an additional dose of Haldol 5 mg and Ativan 2 mg both given intramuscularly, he still is restless Reevaluation #2: We are moving the patient to the behavioral psych PAD, he is yet to have his x- ray, we will have to place this on hold, until you sober Time: 01:23 Reevaluation #3: 0700 11/10/23 -- xr hand unremarkable. > I have personally evaluated patient at bedside. patient clinically sober. he is ambulating with steady gait to the bathroom. speaking in full clear sentences. mildly tremulous. he tells me he does not wish to speak with the care team this morning and would like to go home. he has plans to check into detox later today. he is AOX3, capable of making his own decisions. he is denying SI/HI. > u tox positive for methadone, fentanyl, cocaine, opitates. Patient does not feel as though he is currently in withdrawal. he is not restless on my examination. I discussed the risks of leaving the ED without speaking to the care team/ receiving detox bed and expressed the importance of staying to speak with them. he verbalizes understanding and wishes to be discharged from the ED. At this time he is stable for discharge. take home narcan provided. Additional Reevaluation(s): 11/11/2023 10:27 -- patients blood cx grew gram positive rods. Received call from lab, initial blood culture was entered into computer in correctly. Called patient and made aware of results this morning, recommended return to ED for repeat labs/antibiotics. He verbalized understanding and stated he would return Medications Administered Discontinued Medications Generic Name Dose Route Start Last Admin Trade Name Janis PRN Reason Stop Dose Admin Haloperidol Lactate 5 mg 11/08/23 23:31 11/08/23 23:42 Haloperidol Lactate 5 Mg/Ml Vial IM 11/08/23 23:32 5 mg ONCE ONE Administration Haloperidol Lactate 5 mg 11/09/23 00:27 11/09/23 00:39 Haloperidol Lactate 5 Mg/Ml Vial IM 11/09/23 00:28 5 mg ONCE ONE Administration Lorazepam 2 mg 11/08/23 23:31 11/08/23 23:42 Lorazepam 2 Mg/Ml Vial IM 11/08/23 23:32 2 mg ONCE ONE Administration Lorazepam 2 mg 11/09/23 00:27 11/09/23 00:39 Lorazepam 2 Mg/Ml Vial IM 11/09/23 00:28 2 mg ONCE ONE Administration Methadone HCl 125 mg 11/09/23 11:18 11/09/23 11:51 Methadone Hcl 20 Mg/2 Ml Oral.Conc PO 11/09/23 11:19 125 mg ONCE ONE Administration Medical Decision Making Medical Decision Making MDM Narrative: 27-year-old male with a history of polysubstance abuse, alcohol use disorder presents with left hand pain. EMS was called to his parent's home initially due to the patient's erratic behaviors. He has been consuming alcohol, actively using multiple substances. At 1 point he was running out into the street without his pants on. In regard to the left hand pain, unclear what the mechanism of injury was. History limited as the patient is intoxicated. Problem: Polysubstance abuse, alcohol abuse History: Per EMS I have considered the following differential diagnoses: Cellulitis, fracture, Plan: Unclear if the patient has a fracture, or is developing cellulitis. He has multiple excoriations over the hand, however I do not see track dye. We will be obtaining an x-ray. We are having a medicate the patient as he is so restless he can not sit still, medicating with Haldol and Ativan. Screening labs were already obtained. Once he is medically cleared he will be referred to the behavioral health team I have independently reviewed the following tests: Labs: Leukocytosis noted, not anemic, no electrolyte abnormality, ethanol 1 0 to, drug screen positive for cocaine, fentanyl, methadone, opiate X-ray right hand: Still yet to be obtained Lab Data 11/08/23 22:07 11/08/23 22:07 Labs: Lab Results 11/08/23 11/08/23 Range/Units 20:54 22:07 WBC 13.5 H (4.8-10.8) X10*3/uL RBC 4.35 L (4.60-5.80) X10*6/uL Hgb 12.6 L (14.0-18.0) g/dl Hct 37.0 L (42.0-52.0) % MCV 85.1 (80.0-98.0) fL MCH 29.0 (27.0-33.0) pg MCHC 34.1 (31.0-36.0) g/dl RDW 12.1 (11.0-16.0) % Plt Count 279 (160-400) X10*3/uL MPV 9.4 (9.4-12.4) fL Immature Gran % (Auto) 0.4 (0.0-0.4) % Neut % (Auto) 73.0 (45-73) % Lymph % (Auto) 15.2 L (20-40) % [place] % (Auto) 9.7 (2-11) % Eos % (Auto) 1.0 (0-4) % Baso % (Auto) 0.7 (0-2) % Lymph # (Auto) 2.1 (1.2-4.9) X10*3/uL [place] # (Auto) 1.3 H (0.1-1.2) X10*3/uL Eos # (Auto) 0.1 (0.0-0.4) X10*3/uL Baso # (Auto) 0.1 (0.0-0.2) X10*3/uL Abs Immat Gran (auto) 0.05 H (0.00-0.03) X10*3/uL Absolute Neuts (auto) 9.9 H (2.0-8.3) x10*3/uL Absolute Nucleated RBC 0.000 (0.0-0.012) X10*3/uL Nucleated RBC % (auto) 0.0 (0.0-0.2) /100WBC Sodium 140 (135-145) mmol/L Potassium 3.9 (3.3-5.1) mmol/L Chloride 108 (96-108) mmol/L Carbon Dioxide 21 L (22-29) mmol/L Anion Gap 15 (12-20) BUN 19 H (9-16) mg/dL Creatinine 0.75 (0.5-1.4) mg/dL Estim Creat Clear Calc 143.6 Estimated GFR > 60 Random Glucose 87 (60-115) mg/dL Lactic Acid 1.5 (0.5-2.0) mmol/L Calcium 9.3 (8.4-10.2) mg/dL Total Bilirubin 0.8 (0.0-1.0) mg/dL AST 143 H (5-37) U/L ALT 49 H (0-40) U/L Alkaline Phosphatase 112 (39-117) U/L Total Protein 8.0 (6.5-8.0) g/dL Albumin 4.4 (3.5-5.0) g/dL Urine Color Dark Yellow Urine Appearance Cloudy Urine pH 5.5 (5.0-9.0) Ur Specific [place] >= 1.030 H (1.005-1.025) Urine Protein 100 (2+) H (Neg-Trace) mg/dL Urine Glucose (UA) Negative (Negative) mg/dL Urine Ketones Trace (Negative) mg/dL Urine Blood Large (3+) H (Negative) Urine Nitrite Negative (Negative) Ur Leukocyte Esterase Negative (Negative) Urine RBC 0-2 (0-2) /HPF Urine WBC 0-5 (0-5) /HPF Ur Squamous Epith Cells 0-2 (0-2) /HPF Urine Bacteria None Seen (None Seen) Hyaline Casts >20 (0-2) /LPF Urine Opiates Screen POSITIVE H (Not Detect) Ur Buprenorphine Scrn Not Detected (Not Detect) ng/mL Ur Oxycodone Screen Not Detected (Not Detect) ng/mL Urine Methadone Screen Positive H (Not Detect) ng/mL Urine Fentanyl Screen POSITIVE H (Not Detect) Ur Barbiturates Screen Not Detected (Not Detect) Ur Phencyclidine Scrn Not Detected (Not Detect) Ur Amphetamines Screen Not Detected (Not Detect) U Benzodiazepines Scrn Not Detected (Not Detect) Urine Cocaine Screen POSITIVE H (Not Detect) U Marijuana (THC) Screen Not Detected (Not Detect) Ethyl Alcohol 102 mg/dL Discharge Plan Discharge Clinical Impression: Polysubstance abuse, Hand pain, right Patient Disposition: Home, Self-Care Additional Instructions: You are declining to speak with the care team today. You have been provided with take-home Narcan and educated on how/ when to use this. Stop doing drugs. This is very harmful to your health and can kill you. You tell me you have plans to follow up with a detox center today. You can also follow up with the [facility]. They take walk-ins M-F. [facility] ([facility]): [phone] [address] Prescriptions: No Action (DME) Updraft machine See Rx Instructions .Route .MEDSUPPLY Qty: 1 0RF Rx Instructions: use daily as needed omeprazole 20 mg capsule,delayed release(DR/EC) 20 mg PO BID 90 Days Qty: 180 1RF albuterol sulfate [Ventolin HFA] 90 mcg/actuation HFA aerosol inhaler 2 puff inhalation QID PRN (Reason: for wheezing) Qty: 18 0RF fluticasone furoate-vilanterol [Breo Ellipta] 200-25 mcg/dose blister with device 1 inh inhalation DAILY 30 Days Qty: 60 1RF methadone [Methadone Intensol] 10 mg/mL concentrate 125 mg PO DAILY Rx Instructions: [facility] albuterol sulfate 0.63 mg/3 mL solution for nebulization 0.63 mg inhalation QID PRN (Reason: shortness of breath or wheezing) 30 Days Qty: 90 1RF Metamucil 3.4 gram/5.4 gram powder 1 tbsp PO DAILY Qty: 660 0RF Interventions: ED Discharge Assessment Last Done: 11/10/23 07:04 Discharge Date/Time: 11/10/23 07:08 Print Language: Argentine
[2023-11-08] MEDS: Haloperidol Lactate 5 MG/ML VIAL IM (23:42)
[2023-11-08] MEDS: LORazepam 2 MG/ML VIAL IM (23:42)
--- NOTE | 2023-11-08 23:46 | PC.NURSE ---
pt medicated per APR. pt very restless, will not stay still for XR d/t pain and drug use, requesting something to relax. no IV access. IM preferred.
[2023-11-09] VITALS (11 sets, daily range): BP systolic 104–136; BP diastolic 52–77; PULSE 58–94; RESP 13–18; TEMP 36.1–37.3; O2SAT 92–97
[2023-11-09] MEDS: Haloperidol Lactate 5 MG/ML VIAL IM (00:39)
[2023-11-09] MEDS: LORazepam 2 MG/ML VIAL IM (00:39)
--- NOTE | 2023-11-09 00:44 | PC.NURSE ---
pt remains restless, unable to obtain xray. pt medicated per MAR
--- NOTE | 2023-11-09 02:47 | MHC.CARE ---
Due to Pts Poly substance ,restlessness and needing to be medicated, the CARE team will assess him in the morning.
--- NOTE | 2023-11-09 04:46 | PC.NURSE ---
multiple attempts to obtain xr of hand. unable to tolerate at tis time
--- NOTE | 2023-11-09 06:28 | PC.NURSE ---
pt remained still for hand XR
--- NOTE | 2023-11-09 09:37 | HE.PHANOTE ---
RE: METHADONE DOSING Last dose of methadone 125 mg was given on 11/07/23 @0824 at [facility] [phone] per MELI Armstrong.
--- NOTE | 2023-11-09 09:43 | PC.NURSE ---
Met pt in ED18H. Pt's father and girlfriend were at bedside. Attempted to wake up pt with father however pt was unable to stay awake for longer than a couple of seconds. Pt's father reported pt has been using alcohol and heroin and that he is also on methadone. Reportedly pt has been struggling with BARAK for the last 10 years. Pt's father reported that pt were to go to [facility] for detox yesterday but was too intoxicated and was brought to the ED. TW to obtain methadone verification for this pt.
--- NOTE | 2023-11-09 09:47 | MHC.RECOVRN ---
This bond writer called [facility] and spoke to MELI Armstrong who said that pt is on 125mg of methadone and was last dosed on 11/07/2023 at 8:24 am. MIKA obtained and signed by pt. Methadone verification form filled and sent to pharmacy. ED nurse Irais made aware.
--- NOTE | 2023-11-09 09:55 | MHC.RECOVRN ---
Met pt in ED18H. Pt's father and girlfriend were at bedside. Attempted to wake up pt with father however pt was unable to stay awake for longer than a couple of seconds. Pt's father reported pt has been using alcohol and heroin and that he is also on methadone. Reportedly pt has been struggling with BARAK for the last 10 years. Pt's father reported that pt were to go to [facility] for detox yesterday but was too intoxicated and was brought to the ED. TW to obtain methadone verification for this pt.
--- NOTE | 2023-11-09 10:15 | MHC.RECOVRN ---
Tw attempted to meet with pt again. Father and girlfriend still at bedside. Father helped wake pt up. Pt able to wake up for a couple of seconds. Asked pt if he is interested in detox he said no and fell back asleep. Pt's father said He is not with it right now..He has to go to detox because he failed his probation test so it's either detox or fpc . Will attempt to meet with pt a little later after his RN administers his methadone.
--- NOTE | 2023-11-09 11:18 | MHC.RECOVRN ---
Met with pt again when awake and he reported he is treatment and detox seeking. Pt denies SI/HI plan or intent. During our meeting pt was diaphoretic, restless, irritable, and sensitive to light. ED nurse made aware and provider ordered methadone for pt to be administered ming. Pt reported daily heroin and cocaine use via IV route. Has been using about 1 bundle of heroin on top of taking methadone and 1-2grams of cocaine. Pt also reported daily alchohol use 2-3pints of hard liquor including Vodka. Pt interested in going to [facility] for detox and reports he has been there for treatment before. Pt reported he has been struggling with substance use issues for the last 10 years of his life.
--- NOTE | 2023-11-09 11:28 | MHC.RECOVRN ---
ATS referral packet sent to [facility] for review. Waiting to hear back.
--- NOTE | 2023-11-09 11:38 | MHC.RECOVRN ---
Per [facility] staff [facility] is at full capacity and was advised to send pt to [facility] as a walk-in in the morning at 8:30am.
[2023-11-09] MEDS: methADONE HCl 20 MG/2 ML ORAL.CONC 125 MG PO (11:51)
--- NOTE | 2023-11-09 12:48 | MHC.RECOVRN ---
Releases of information obtained from pt, referral packets for detox sent to: [facility] (no beds), [facility], [facility], [facility], [facility], [facility], [facility], and [facility]. Waiting to hear back.
--- NOTE | 2023-11-09 12:54 | MHC.RECOVRN ---
[facility] detox center called and reported they are at full capacity today. Waiting to hear back from: [facility], [facility], and [facility].
--- NOTE | 2023-11-09 14:17 | MHC.RECOVRN ---
Per [facility] staff pt's [employer] insurance is currently inactive. Waiting to hear back from facility where insurance is not a requirement/can set up insurance for him there. Per provider LUCILA Alfred, pt is able to stay in the ED tonight while we are waiting for a detox bed for him. [facility] detox is at full capacity.
--- NOTE | 2023-11-09 20:31 | PC.NURSE ---
late entry- this rn assumed care of pt, pt resting in stretcher, no acute distress noted. appears to be in green gown and changed over.
[2023-11-10 02:26] VITALS: BP 129/66; PULSE 74; RESP 14; TEMP 36.3; O2SAT 96
--- NOTE | 2023-11-10 04:32 | PC.NURSE ---
pt awake and alert at this time, pt given ice water per request at this time. plan of care contiues.
--- NOTE | 2023-11-10 06:20 | PC.NURSE ---
pt up and alert at this time, pt ambulating with steady gait to bathroom at this time, pt given pitcher of water.
[2023-11-10 06:40] VITALS: BP 123/74; PULSE 62; RESP 12; TEMP 36.7; O2SAT 95
--- NOTE | 2023-11-10 06:55 | PC.NURSE ---
pt asking to leave at this time, this RN explained to pt that he is waiting for detox, pt reports he does not want to wait. Kenia GAYTAN aware.
[2023-11-10 07:04] VITALS: BP 123/74; PULSE 62; RESP 12; TEMP 36.7; O2SAT 95
== END 2023-11-10 07:08 | disposition home or self-care (01) ==
PROVIDERS: Physician Assistant Medical; Emergency Provider Emergency Medicine
DX: M79.642 Pain in left hand (principal); F19.10 Other psychoactive substance abuse, uncomplicated; F10.10 Alcohol abuse, uncomplicated; Y90.5 Blood alcohol level of 100-119 mg/100 ml; F11.20 Opioid dependence, uncomplicated
CPT/HCPCS: 36415; 73130; 80053; 80307; 81001; 83605; 85025; 87040; 87077; 87186; 87205; 96372; 99285; J1630; J2060

== ENCOUNTER 2023-11-11 11:44 | Inpatient (IN) | payer MEDICAID, SELFPAY ==
[2023-11-11 12:32] VITALS: BP 154/88; PULSE 85; RESP 16; TEMP 36.7; O2SAT 96; BMI 22.8
--- NOTE | 2023-11-11 12:36 | ED_ITS ---
HPI - General Adult General Chief complaint: Recheck/Abnormal Lab/Rx Stated complaint: abnormal labs, told to come back Time Seen by Provider: 11/11/23 20:44 Source: patient Mode of arrival: ambulatory Limitations: no limitations History of Present Illness ED Provider: prince REYES narrative: Patient's history of IV drug use cocaine and heroin was seen here on 11/07 for right hand pain at the site of IV drug use blood cultures were done showed positive for bacillus cereus no fever no chills patient feels fine otherwise no open wound no palpitation or chest pain Related Data Home Medications ?Medication ?Instructions ?Recorded ?Confirmed methadone 10 mg/mL oral 125 mg PO DAILY 11/30/21 11/09/23 concentrate (Methadone Intensol) clonidine HCl 0.1 mg tablet 0.1 mg PO BID PRN anxiety 11/11/23 11/11/23 hydroxyzine HCl 25 mg tablet 25 - 50 mg PO BID PRN anxiety 11/11/23 11/11/23 ibuprofen 600 mg tablet 600 mg PO TID PRN pain 11/11/23 11/11/23 melatonin 5 mg tablet 5 mg PO BEDTIME PRN Sleep 11/11/23 11/11/23 naloxone 4 mg/actuation nasal 1 spray intranasal DIRECTED 11/11/23 11/11/23 spray (Narcan) nicotine (polacrilex) 4 mg gum 4 mg PO Q4H PRN Smoking Cessation 11/11/23 11/11/23 nicotine 21 mg/24 hr daily 1 patch topical BEDTIME PRN 11/11/23 11/11/23 transdermal patch Smoking Cessation omeprazole 20 mg capsule,delayed 20 mg PO BID@0630,1630 11/11/23 11/11/23 release Previous Rx's ?Medication ?Instructions ?Recorded Updraft machine #1 ea 11/27/21 albuterol sulfate 90 mcg/actuation 2 puff inhalation QID PRN for 04/21/23 aerosol inhaler (Ventolin HFA) wheezing #18 ea Allergies Allergy/AdvReac Type Severity Reaction Status Date / Time No Known Allergies Allergy Verified 11/11/23 12:35 [No Known Allergies*] Review of Systems 2 Review of Systems: Yes all other systems are reviewed and are negative PMFSH Past Medical History Medical History IVDU (intravenous drug user) Substance abuse Transaminitis Post-COVID syndrome Breast mass in male Asthma History of opioid abuse Attention deficit hyperactivity disorder (ADHD) Elevated LFTs Gastritis Surgical History No pertinent past surgical history Family History Family History Father History of kidney transplant Heart problem Diabetes mellitus Mother Smoker ETOH abuse Maternal Grandmother Breast cancer Maternal Grandfather CVD (cardiovascular disease) Paternal Grandmother No problems noted. Paternal Grandfather Diabetes mellitus Paternal Uncle Substance use disorder Maternal Uncle Substance use disorder Family/Other Substance use disorder Social History Social History Household Members: Family Housing: House Do you presently have visiting nurse or other home services: No Alcohol intake: current Alcohol intake frequency: 0-2 drinks per day Alcohol type: beer Patient Tobacco Use Status: Former Tobacco user Tobacco use type: Cigarette Smoked in Last 30 Days: Yes e-Cigarette/Vaping Use: Never Used Second Hand Smoke Exposure: No Use of substances other than those prescribed or required for medical reasons: Yes Substance Use Type: Crack/Cocaine and Heroin Advance Directives: No Advance Directives Information Provided: No service: No Current occupational status: employed 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 Oriented X3. No acute distress. Eyes: No pallor or icterus ENT: Pharynx normal. Oral Mucosa moist Neck: Normal inspection. Neck supple. CVS: Normal heart rate and rhythm. Pulses normal. Respiratory: No respiratory distress. Equal air entry bilateral, no wheezing/rales/rhonchi Abdomen: Soft and nontender. Bowel sounds are present, Skin: Skin warm and dry. Normal skin color. Normal skin turgor. Extremities: No lower extremity edema. No calf tenderness IVDA track dye++ no spinal tenderness Neuro: Oriented X 3. No motor deficit. No sensory deficit.No cerebellar signs , cranial nerves II-XII intact Course Course Course Narrative: RME, this is a rapid medical exam performed by Chiki Mcdowell please refer to primary provider for complete H&P- 27-year-old male with history of polysubstance abuse including IV drug abuse presents for evaluation of ?they told me to come back for positive blood cultures. ? He was seen here on 11/08/2023 for right hand pain, he had blood cultures that grew Gram-positive rods. Both sets of blood cultures were positive. The patient will likely require admission for IV antibiotics and likely echocardiogram Medications Administered Generic Name Dose Route Start Last Admin Trade Name Freq PRN Reason Stop Dose Admin Enoxaparin Sodium 40 mg 11/11/23 21:00 11/11/23 21:15 Enoxaparin Sodium 40 Mg/0.4 Ml Syringe SUBCUT 40 mg Q24H BETI Administration Sodium Chloride 3 ml 11/12/23 00:00 11/12/23 00:25 0.9 % Sodium Chloride Flush 3 Ml Syringe IVFLUSH Not Given QSHIFT BETI Discontinued Medications Generic Name Dose Route Start Last Admin Trade Name Freq PRN Reason Stop Dose Admin Diphenhydramine HCl 25 mg 11/11/23 21:01 11/11/23 21:15 Diphenhydramine Hcl 25 Mg Capsule PO 11/11/23 21:02 25 mg ONCE ONE Administration Vancomycin HCl 1,250 mg/ 250 mls @ 166.667 mls/hr 11/11/23 20:56 11/11/23 21:31 Sodium Chloride IV 11/11/23 22:25 Not Given ONCE ONE Lactated Ringer's 1,000 mls @ 999 mls/hr 11/11/23 21:15 11/11/23 22:15 Lr IV 11/11/23 22:15 Infused .Q1H1M BETI Infusion Vancomycin HCl 1,000 mg/ 535 mls @ 267.5 mls/hr 11/11/23 22:00 11/12/23 00:30 Vancomycin HCl 750 mg/ Sodium IV 11/11/23 23:59 Infused Chloride ONCE ONE Infusion Medical Decision Making Medical Decision Making [facility] Narrative: Patient with history of IVDA Gram-positive bacteremia will start patient on vancomycin admit Differential Diagnosis Differential Diagnoses: The differential diagnosis associated with the presentation includes Admission/Observation Consideration of admission/observation: Escalation of care including admission/observation considered Consult Healthcare Provider Management of the patient was discussed with: Hospitalist Lab Data MDM Lab Attestation statement: I reviewed the patient's lab results. 11/11/23 13:12 11/11/23 13:12 Labs: Lab Results 11/11/23 Range/Units 13:12 WBC 7.0 (4.8-10.8) X10*3/uL RBC 4.03 L (4.60-5.80) X10*6/uL Hgb 11.7 L (14.0-18.0) g/dl Hct 35.0 L (42.0-52.0) % MCV 86.8 (80.0-98.0) fL MCH 29.0 (27.0-33.0) pg MCHC 33.4 (31.0-36.0) g/dl RDW 12.2 (11.0-16.0) % Plt Count 272 (160-400) X10*3/uL MPV 9.3 L (9.4-12.4) fL Immature Gran % (Auto) 0.3 (0.0-0.4) % Neut % (Auto) 53.8 (45-73) % Lymph % (Auto) 30.8 (20-40) % [place] % (Auto) 10.3 (2-11) % Eos % (Auto) 4.1 H (0-4) % Baso % (Auto) 0.7 (0-2) % Lymph # (Auto) 2.2 (1.2-4.9) X10*3/uL [place] # (Auto) 0.7 (0.1-1.2) X10*3/uL Eos # (Auto) 0.3 (0.0-0.4) X10*3/uL Baso # (Auto) 0.1 (0.0-0.2) X10*3/uL Abs Immat Gran (auto) 0.02 (0.00-0.03) X10*3/uL Absolute Neuts (auto) 3.8 (2.0-8.3) x10*3/uL Absolute Nucleated RBC 0.000 (0.0-0.012) X10*3/uL Nucleated RBC % (auto) 0.0 (0.0-0.2) /100WBC Sodium 139 (135-145) mmol/L Potassium 3.5 (3.3-5.1) mmol/L Chloride 104 (96-108) mmol/L Carbon Dioxide 26 (22-29) mmol/L Anion Gap 13 (12-20) BUN 10 (9-16) mg/dL Creatinine 0.74 (0.5-1.4) mg/dL Estim Creat Clear Calc 145.2 Estimated GFR > 60 Random Glucose 157 H (60-115) mg/dL Lactic Acid 1.1 (0.5-2.0) mmol/L Calcium 9.7 (8.4-10.2) mg/dL Total Bilirubin 0.3 (0.0-1.0) mg/dL AST 85 H (5-37) U/L ALT 49 H (0-40) U/L Alkaline Phosphatase 92 (39-117) U/L Total Protein 7.6 (6.5-8.0) g/dL Albumin 4.2 (3.5-5.0) g/dL Discharge Plan Discharge Clinical Impression: Bacteremia, Polysubstance abuse Patient Disposition: Admitted As Inpatient
[2023-11-11 13:22] LABS: MANUAL DIFF FLAG NO
[2023-11-11 13:24] LABS: Basophils Absolute Auto 0.1 X10*3/uL (0.0-0.2); Basophils Percent Auto 0.7 % (0-2); Eosinophils Absolute Auto 0.3 X10*3/uL (0.0-0.4); Eosinophils Percent Auto 4.1 % (0-4); Hemoglobin 11.7 g/dl (14.0-18.0); Imm Gran Abs Auto 0.02 X10*3/uL (0.00-0.03); Imm Gran Pct Auto 0.3 % (0.0-0.4); Lymphocytes Absolute Auto 2.2 X10*3/uL (1.2-4.9); Lymphocytes Percent Auto 30.8 % (20-40); Mean Corpuscular HGB Conc 33.4 g/dl (31.0-36.0); Mean Corpuscular Volume 86.8 fL (80.0-98.0); Mean Platelet Volume 9.3 fL (9.4-12.4); Monocytes Absolute Auto 0.7 X10*3/uL (0.1-1.2); Monocytes Percent Auto 10.3 % (2-11); Neutrophils Absolute Auto 3.8 x10*3/uL (2.0-8.3); Neutrophils Percent Auto 53.8 % (45-73); Platelet Count 272 X10*3/uL (160-400); Red Blood Count 4.03 X10*6/uL (4.60-5.80); Red Cell Distribution Width 12.2 % (11.0-16.0)
[2023-11-11 13:35] LABS: Lactic Acid 1.1 mmol/L (0.5-2.0)
[2023-11-11 13:39] LABS: Alanine Aminotransferase 49 U/L (0-40); Albumin Level 4.2 g/dL (3.5-5.0); Alkaline Phosphatase 92 U/L (39-117); Anion Gap 13 (12-20); Aspartate Amino Transferase 85 U/L (5-37); Bilirubin Total 0.3 mg/dL (0.0-1.0); Blood Urea Nitrogen 10 mg/dL (9-16); Calcium 9.7 mg/dL (8.4-10.2); Carbon Dioxide 26 mmol/L (22-29); Chloride 104 mmol/L (96-108); Creatinine Clr Calc Pharmacy 145.2; Estimated Glomerular Filt Rate > 60; Glucose Random 157 mg/dL (60-115); Potassium 3.5 mmol/L (3.3-5.1); Sodium 139 mmol/L (135-145); Total Protein 7.6 g/dL (6.5-8.0)
[2023-11-11 20:30] VITALS: BP 141/69; PULSE 87; RESP 16; TEMP 36.7; O2SAT 97
--- NOTE | 2023-11-11 20:31 | MHC.EDTECH ---
This pct just assumed care of Patient ,vitals taken ,Patient got change into hospital attire .Patient girlfriend at bedside .
--- NOTE | 2023-11-11 20:33 | PC.NURSE ---
Pt a&ox4, no signs of distress Pt denies pain at this time Pt with gf at bedside Plan of care ongoing.
--- NOTE | 2023-11-11 21:01 | P.HPHOSP_ITS ---
History of Present Illness Date of Service: 11/11/23 Chief Complaint: Abnormal labs This is a 27-year-old male with pertinent history of IV polysubstance use disorder on methadone, asthma not on home oxygen, alcohol use disorder who was called to the emergency department for treatment of bacteremia. Patient was seen in the ER 3 days prior to presentation for right hand pain. Admits to using IV drugs in the right hand. Patient states the pain and swelling of his right hand have improved. He is able to make a fist and move his fingers and wrist. States he came to the ER as he was called due to bacteria present in his blood. Denies fever, chills, chest discomfort, palpitations, shortness of breath, abdominal pain, changes in urinary or bowel habits. No history of endocarditis. His last IV drug use was 2 days prior to presentation. Last alcohol use was 2 days prior to presentation. No concerns for alcohol withdrawal In the emergency department, patient was given IV vancomycin and repeat blood cultures ordered Review of Systems 2 Constitutional: Constitutional: Reports no additional constitutional complaints Cardiovascular: Cardiovascular: Reports no additional cardiovascular complaints Respiratory: Respiratory: Reports no additional respiratory complaints Gastrointestinal: Gastrointestinal: Reports no additional gastrointestinal complaints Genitourinary: Genitourinary: Reports no additional male genitourinary complaints Musculoskeletal: Musculoskeletal: Reports no additional musculoskeletal complaints [facility] Medical History IVDU (intravenous drug user) Substance abuse Transaminitis Post-COVID syndrome Breast mass in male Asthma History of opioid abuse Attention deficit hyperactivity disorder (ADHD) Elevated LFTs Gastritis Family History Father History of kidney transplant Heart problem Diabetes mellitus Mother Smoker ETOH abuse Maternal Grandmother Breast cancer Maternal Grandfather CVD (cardiovascular disease) Paternal Grandmother No problems noted. Paternal Grandfather Diabetes mellitus Paternal Uncle Substance use disorder Maternal Uncle Substance use disorder Family/Other Substance use disorder Surgical History No pertinent past surgical history Social History Household Members: Family Housing: House Do you presently have visiting nurse or other home services: No Alcohol intake: current Alcohol intake frequency: 0-2 drinks per day Alcohol type: beer Patient Tobacco Use Status: Former Tobacco user Tobacco use type: Cigarette Smoked in Last 30 Days: Yes e-Cigarette/Vaping Use: Never Used Second Hand Smoke Exposure: No Use of substances other than those prescribed or required for medical reasons: Yes Substance Use Type: Crack/Cocaine and Heroin Advance Directives: No Advance Directives Information Provided: No service: No Current occupational status: employed 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 Current occupational exposures/hazards: No Cognitive needs: No Hearing needs: No Vision needs: No Meds Allergies Allergy/AdvReac Type Severity Reaction Status Date / Time No Known Allergies Allergy Verified 11/11/23 12:35 [No Known Allergies*] Active Medications: Current Medications Vancomycin HCl 1,250 mg/ (Sodium Chloride) 250 mls @ 166.667 mls/hr IV ONCE ONE Stop: 11/11/23 22:25 Home Medications ?Medication ?Instructions ?Recorded ?Confirmed ?Last Taken ?Type methadone 10 mg/mL oral 125 mg PO DAILY 11/30/21 11/09/23 11/07/23 08:24 History concentrate (Methadone Intensol) clonidine HCl 0.1 mg tablet 0.1 mg PO BID PRN anxiety 11/11/23 Unknown History hydroxyzine HCl 25 mg tablet 25 - 50 mg PO BID PRN anxiety 11/11/23 Unknown History ibuprofen 600 mg tablet 600 mg PO TID PRN pain 11/11/23 Unknown History melatonin 5 mg tablet 5 mg PO BEDTIME PRN Sleep 11/11/23 Unknown History naloxone 4 mg/actuation nasal 1 spray intranasal DIRECTED 11/11/23 Unknown History spray (Narcan) nicotine (polacrilex) 4 mg gum 4 mg PO Q4H PRN Smoking Cessation 11/11/23 Unknown History nicotine 21 mg/24 hr daily 1 patch topical BEDTIME PRN 11/11/23 Unknown History transdermal patch Smoking Cessation omeprazole 20 mg capsule,delayed 20 mg PO BID@0630,1630 11/11/23 11/11/23 11/09/23 History release Physical Exam 2 Vital Signs and Narrative: Vital Signs: Last Vital Signs Temp 98.0 F 11/11/23 20:30 Pulse 87 11/11/23 20:30 Resp 16 11/11/23 20:30 BP 141/69 H 11/11/23 20:30 Pulse Ox 97 11/11/23 20:30 O2 Del Method Room Air 11/11/23 20:30 BMI result Body Mass Index 22.8 Middle-aged male lying in bed in no distress Neck supple, no JVD Regular rate and rhythm, S1-S2 heard Regular breath sounds bilaterally, no wheezing or crackles appreciated Abdomen soft nontender, no guarding, no rigidity Patient is awake, alert and oriented to self, place, time and person ; no focal motor deficit Psych: Normal mood Skin with multiple track dye Results Labs 11/11/23 13:12 11/11/23 13:12 Labs: Laboratory Results - last 24 hr 11/11/23 13:12 MCV 86.8 MCH 29.0 MCHC 33.4 RDW 12.2 Plt Count 272 MPV 9.3 L Immature Gran % (Auto) 0.3 Neut % (Auto) 53.8 Lymph % (Auto) 30.8 [place] % (Auto) 10.3 Eos % (Auto) 4.1 H Baso % (Auto) 0.7 Lymph # (Auto) 2.2 [place] # (Auto) 0.7 Eos # (Auto) 0.3 Baso # (Auto) 0.1 Abs Immat Gran (auto) 0.02 Absolute Neuts (auto) 3.8 Absolute Nucleated RBC 0.000 Nucleated RBC % (auto) 0.0 Anion Gap 13 Estim Creat Clear Calc 145.2 Estimated GFR > 60 Random Glucose 157 H Lactic Acid 1.1 Calcium 9.7 Total Bilirubin 0.3 AST 85 H ALT 49 H Alkaline Phosphatase 92 Total Protein 7.6 Albumin 4.2 Assessment and Plan (1) Gram-positive bacteremia: Status: Acute Plan This is a 27-year-old male with pertinent history of IV polysubstance use disorder on methadone, asthma not on home oxygen, alcohol use disorder who was called to the emergency department for treatment of bacteremia. #. Gram-positive bacteremia in a patient with IV substance use disorder: Initiated IV vancomycin. No sepsis. Consulting Infectious Disease, appreciate assistance. Repeat cultures pending. Obtaining echo #. Asthma not on home oxygen: No exacerbation during admission. Continue home inhaler #. Alcohol use disorder: Monitor CIWA. Initiated thiamine and folic acid #. Polysubstance use disorder: On methadone. Monitor for withdrawals. Consulted Addiction Team Med rec pending DVT prophylaxis: Lovenox Full code Admit as inpatient and will require two night minimum hospital stay for IV antibiotics (as above), which is not possible in a lesser acute setting. Quality Stroke Does the patient have a stroke diagnosis?: No VTE Prior VTE?: No VTE Risk Level:: Medical - moderate - high VTE Device Contraindication: Treatment Not Indicated VTE Drug Contraindication: N/A - Med Ordered
[2023-11-11] MEDS: Lactated Ringers 1,000 ML 999 ML IV (21:12)
[2023-11-11] MEDS: Enoxaparin Sodium 40 MG/0.4 ML SYRINGE SUBCUT (21:15)
[2023-11-11] MEDS: diphenhydrAMINE HCL 25 MG CAPSULE PO (21:15)
--- NOTE | 2023-11-11 21:17 | PC.NURSE ---
Pt medicated per [facility] Plan of care ongoing.
--- NOTE | 2023-11-11 21:27 | PHA.MEDREC ---
Addendum entered by Lorelei Bautista RPh 11/11/23 21:39: reviewed by [facility]. Original Note: Pharmacy Consult ? Medication Reconciliation Pharmacy has completed the medication reconciliation. Spoke to patient to confirm med list. patient states he no longer takes Fluticason furoate 200 mcg-Vilanterol 25 mcg, Trazadone 100 mg, and Effexor XR 37.5 mg. Patient states he is on Methadone 125 mg daily form [facility] in [place].
[2023-11-11] MEDS: vancomycin HCL 1,000 MG, vancomycin HCL 750 MG in 0.9 % Sodium Chloride 500 ML 267.5 MG IV (22:27)
--- NOTE | 2023-11-11 22:31 | PC.NURSE ---
Pt medicated per mar Pts gf at bedside Plan of care ongoing.
--- NOTE | 2023-11-11 22:32 | PHA.PROG ---
Admission Date/Time: November 11, 2023 21:00 Indication: bacteremia Weight in k.9 kg Adjusted body weight in Kg: [place] body weight in Kg: Obesity Dosing Indication % IBW: BMI 22.8 Serum Creatinine - Last 168 Hours 11/11/23 13:12 Creatinine 0.74 Estimated CrCl and GFR - Last 168 Hours 11/11/23 13:12 Estim Creat Clear Calc 145.2 Estimated GFR > 60 Vancomycin Loading Dose: 1750mg x1 Current Vancomycin Dosing Regimen: 1000mg Q8H Vancomycin Monitoring using AUC goal of 400 - 600 range with trough as surrogate marker: 573 Date and Time for next Vancomycin Level to be drawn: 11/11 @2100 Pharmacist Comments on Vancomycin Plan: predicted trough 17.8, to be adjusted per renal function and trough. Vancomycin dosing will take advantage of [employer] as a clinical decision support tool that uses Bayesian modeling to calculate individual patient's pharmacokinetic parameters and forecast the patient's drug concentration time course with the target goal AUC 24 range of 400 - 600 mg/L/hr.
--- NOTE | 2023-11-12 00:41 | PC.NURSE ---
Pt requested and given water Plan of care ongoing.
--- NOTE | 2023-11-12 00:59 | MHC.EDTECH ---
Patient midnight rounding done ,vitals taken ,Patient belongings list done ,urine sample collected and se4nt to lab .Call benjamin within Pt reach .
[2023-11-12 01:02] LABS: Appearance Urine Clear; Color Urine Yellow; Glucose Urine UA Negative (Negative); Leukocyte Esterase Urine Negative (Negative); Nitrite Urine Negative (Negative); PH 6.5 (5.0-9.0); Specific Gravity - Urine 1.015 (1.005-1.025); Urine Blood Negative (Negative); Urine Ketones Negative (Negative); Urine Protein Negative (Neg-Trace)
[2023-11-12 01:04] LABS: Bacteria Urine None Seen (None Seen); RBC Urine 0-2 /HPF (0-2); Squamous Epithelial Cell Urine 0-2 /HPF (0-2); WBC Urine 0-5 /HPF (0-5)
[2023-11-12 01:14] LABS: Amphetamine Screen Urine Not Detected (Not Detect); Barbiturates, Urine Not Detected (Not Detect); Benzodiazepines Screen Urine Not Detected (Not Detect); Buprenorphine Scr Not Detected (Not Detect); Cannabinoid Screen Urine Not Detected (Not Detect); Cocaine Screen Urine POSITIVE (Not Detect); Fentanyl, urine POSITIVE (Not Detect); Methadone Screen, Urine Positive (Not Detect); Opiate Screen Urine POSITIVE (Not Detect); Oxycodone Screen Urine Not Detected (Not Detect); Phencyclidine Screen Urine Not Detected (Not Detect)
[2023-11-12 03:58] VITALS: BP 107/66; PULSE 52; RESP 16; TEMP 36.6; O2SAT 97
[2023-11-12 05:09] LABS: MANUAL DIFF FLAG NO
[2023-11-12 05:13] LABS: Basophils Absolute Auto 0.1 X10*3/uL (0.0-0.2); Basophils Percent Auto 0.9 % (0-2); Eosinophils Absolute Auto 0.9 X10*3/uL (0.0-0.4); Eosinophils Percent Auto 12.7 % (0-4); Hematocrit 34.5 % (42.0-52.0); Hemoglobin 11.2 g/dl (14.0-18.0); Imm Gran Abs Auto 0.01 X10*3/uL (0.00-0.03); Imm Gran Pct Auto 0.1 % (0.0-0.4); Lymphocytes Absolute Auto 2.9 X10*3/uL (1.2-4.9); Lymphocytes Percent Auto 43.1 % (20-40); Mean Corpuscular HGB Conc 32.5 g/dl (31.0-36.0); Mean Corpuscular Hemoglobin 28.7 pg (27.0-33.0); Mean Corpuscular Volume 88.5 fL (80.0-98.0); Mean Platelet Volume 9.7 fL (9.4-12.4); Monocytes Absolute Auto 0.7 X10*3/uL (0.1-1.2); Neutrophils Absolute Auto 2.2 x10*3/uL (2.0-8.3); Neutrophils Percent Auto 33.2 % (45-73); Platelet Count 250 X10*3/uL (160-400); Red Cell Distribution Width 12.3 % (11.0-16.0); White Blood Count 6.7 X10*3/uL (4.8-10.8)
[2023-11-12 05:24] LABS: Anion Gap 12 (12-20); Blood Urea Nitrogen 7 mg/dL (9-16); Calcium 8.8 mg/dL (8.4-10.2); Carbon Dioxide 26 mmol/L (22-29); Chloride 106 mmol/L (96-108); Creatinine Clr Calc Pharmacy 167.9; Estimated Glomerular Filt Rate > 60; Glucose Random 121 mg/dL (60-115); Potassium 3.4 mmol/L (3.3-5.1); Sodium 141 mmol/L (135-145)
[2023-11-12 06:14] VITALS: BP 114/60; PULSE 52; RESP 16; TEMP 36.9; O2SAT 97
--- NOTE | 2023-11-12 07:00 | CA_ITS ---
Transthoracic Echocardiogram Patient (Last, First, Middle): Catarino Roth T Gender: Male Date of : 1995 Age: 27 Procedure Date: 11/12/2023 Procedure Type: Transthoracic Echocardiogram Location: ER Height: 172.72 cm Weight: 68.04 kg BSA: 1.81 m2 Heart Rate: bpm BP: 114 / 60 mmHg Consulting Psychiatrist: Referring MD: Cynthia Zhu MD Symptoms: gram positive bacteremia Study Quality: Adequate Conclusions: - Normal left ventricular size, thickness, systolic function, and wall motion. The visually estimated ejection fraction is between 55-60%. Diastolic function is normal for age. - Normal right ventricular cavity size and systolic function. - No significant valvular disease. Findings Left Ventricle Normal left ventricular size, thickness, systolic function, and wall motion. The visually estimated ejection fraction is between 55-60%. Diastolic function is normal for age. Right Ventricle Normal right ventricular cavity size and systolic function. Atria Both atria are normal in size. Aortic Valve Normal aortic valve structure and function. There is no aortic valve stenosis. There is no aortic valve regurgitation. Mitral Valve Normal mitral valve structure and function. There is no mitral valve regurgitation. There is no mitral valve stenosis. Pulmonic Valve The pulmonic valve is likely normal. There is no pulmonic valve regurgitation. Tricuspid Valve Normal tricuspid valve structure. There is no tricuspid valve regurgitation. Tricuspid regurgitation envelope is inadequate for calculation of right ventricular systolic pressure. Normal right atrial pressure. Great Vessels All visible segments of the aorta are normal in size. The visualized portions of the pulmonary artery and branches are normal. Venous The inferior vena cava is normal in size and collapses greater than 50% with inspiration. Pericardium/Pleural There is no evidence of pericardial effusion. Prior Study Comparison No prior study available for comparison. Measurements 2D Linear Measurements IVSd: 1.00 0.6-0.9/0.6-1.0 cm LVIDd: 5.65 3.9-5.3/4.2-5.9 cm LVIDd Index: 3.12 2.4-3.2/2.2-3.1 cm/m2 LVIDs: 3.65 2.0-3.6 cm LVPWd: 0.97 0.7-1.1 cm Ao Root: 2.80 2.1-3.5 cm LA Diam: 3.90 2.7-3.8/3.0-4.0 cm LAIDs Index: 2.15 1.5-2.3 cm/m2 LV Mass: 271.67 67-162/88-224 g LV Mass Index: 150.09 43-95/49-115 g/m2 LVOT Diam: 2.10 3.0+(-)1.3 cm Mitral Valve MV VTI: 0.50 MV Pk Armando: 1.06 MV Mn Armando: 0.46 MV Pk Grad: 4.00 MV Mn Grad: 1.00 MV Pk E: 0.99 MV PK A: 0.48 MV Decel Time: 251.00 E/A: 2.10 E'Lateral: 15.60 E'Medial: 12.40 E/E' Med: 8.00 E/E' Lat: 6.40 PHT: 74.00 MVA PHT: 2.97 MVA Continuity: 1.66 Decel [place]: 3.96 Aortic Valve AoV Pk Armando: 1.31 AoV Mn Armando: 0.78 AoV VTI: 0.33 AoV Pk Grad: 7.00 Aov Mn Grad: 3.00 RENALDO Cont.VTI: 2.50 LVOT LVOT Pk Armando: 1.00 LVOT Mn Armando: 0.68 LVOT VTI: 0.24 LVOT Pk Grad: 4.00 LVOT Mn Grad: 2.00 LVOT Diam: 2.10 LVOT Area: 3.46 Diastolic Function MV Pk E: 0.99 MV Pk A: 0.48 E/A: 2.10 E'Medial: 12.40 E/E' Med: 8.00 E' Laterial: 15.60 E/E' Lat: 6.40 Right Ventricle TAPSE (mm): 27.40 TVS' Armando: 16.10 Tricuspid Valve TR Pk Armando: 2.11 TR Pk Grad: 18.00 Great Vessels Aorta Ao Root-2D: 2.80 2.0-3.7 cm Ao Asc: 2.80 2.1-3.4 cm Pulmonary Valve PV Pk Armando: 1.08 Peak PV Grad: 5.00 Updated in Other Vendor System with Status of Final Rhys Lawson MD electronically signed on 11/12/2023 8:45:26 PM with status of Final
[2023-11-12] MEDS: vancomycin HCL 1,000 MG in 0.9 % Sodium Chloride 250 ML 270 MG IV ×2 (07:21→14:48)
--- NOTE | 2023-11-12 08:53 | HE.PHANOTE ---
METHADONE Pt receives from [facility] ([phone]). Pt last received 125 mg on 11/11/23 @ 0807, per Genie GARRISON in facility.
[2023-11-12] MEDS: methADONE HCl 20 MG/2 ML ORAL.CONC 125 MG PO (09:16)
--- NOTE | 2023-11-12 11:15 | MHC.RECOVRN ---
Met with patient in ED bed 5 for a check in. Patient states he is established at [facility], receives methadone there. States I feel good, no problems . He had no further questions or concerns, I encouraged him to reach out to our team if needed.
[2023-11-12] MEDS: diphenhydrAMINE HCL 25 MG CAPSULE PO (11:17)
--- NOTE | 2023-11-12 12:27 | MHC.CM.PN ---
PT LIVES WITH HIS FATHER HE GOES TO [facility] FOR HIS METHADONE ,HE HS A RIDE HOME WHEN DCD DC PLAN HOME
[2023-11-12] MEDS: Nicotine 21 MG PATCH.TD24 TRANSDERMA (14:10)
[2023-11-12 14:38] VITALS: BP 135/83; PULSE 72; RESP 18; TEMP 36.1; O2SAT 98
[2023-11-12] MEDS: 0.9 % Sodium Chloride Flush 3 ML SYRINGE IVFLUSH (15:06)
--- NOTE | 2023-11-12 15:30 | P.PNIM_ITS ---
Subjective Subjective Date of Service: 11/12/23 Interval History: No acute issues overnight. Tolerant of therapies Review of Systems Denies chest pain Denies shortness of breath Denies nausea vomiting diarrhea Denies fever chills Physical Exam 2 Vital Signs: Vital Signs: Last Vital Signs Temp 97.0 F 11/12/23 14:38 Pulse 72 11/12/23 14:38 Resp 18 11/12/23 14:38 BP 135/83 11/12/23 14:38 Pulse Ox 98 11/12/23 14:38 O2 Del Method Room Air 11/12/23 14:38 BMI result Body Mass Index 22.8 Const: Other: Awake alert oriented x3 no acute distress Resp: Other: Clear to auscultation bilaterally no rales rhonchi or wheezes Cardio: Other: No S4; positive S1-S2; no S3 murmurs rubs or gallops GI: Other: Soft nontender nondistended normoactive bowel sounds Extrem: Other: No edema bilaterally Objective Data Active Medications Acetaminophen (Acetaminophen 325 Mg Tablet) 650 mg PO Q6H PRN PRN Reason: Pain, Mild (Pain Scale 1-3), fever or headache Calcium Carbonate (Calcium Carbonate 750 Mg Tab.Chew) 750 mg PO Q4H PRN PRN Reason: Heartburn Diphenhydramine HCl (Diphenhydramine Hcl 25 Mg Capsule) 25 mg PO Q6H PRN PRN Reason: Itching Last Admin: 11/12/23 11:17 Dose: 25 mg Documented By: ANÍBAL Enoxaparin Sodium (Enoxaparin Sodium 40 Mg/0.4 Ml Syringe) 40 mg SUBCUT Q24H [facility] Last Admin: 11/11/23 21:15 Dose: 40 mg Documented By: ERIKA Vancomycin HCl 1,000 mg/ (Sodium Chloride) 270 mls @ 270 mls/hr IV Q8H [facility] Last Admin: 11/12/23 14:48 Dose: 270 mls/hr Documented By: DEIDRA Magnesium Hydroxide (Milk Of Magnesia 30 Ml Oral.Susp) 30 ml PO DAILY PRN PRN Reason: Constipation Melatonin (Melatonin 3 Mg Tablet) 6 mg PO BEDTIME PRN PRN Reason: Insomnia Methadone HCl (Methadone Hcl 20 Mg/2 Ml Oral.Conc) 125 mg PO DAILY@0800 [facility] Last Admin: 11/12/23 09:16 Dose: 125 mg Documented By: ANÍBAL Co-signed By: CHRISS Nicotine (Nicotine 21 Mg Patch.Td24) 21 mg TRANSDERMA DAILY [facility] Last Admin: 11/12/23 14:10 Dose: 21 mg Documented By: ROCÍO Ondansetron HCl (Ondansetron Hcl 4 Mg/2 Ml Vial) 4 mg IVPUSH Q8H PRN PRN Reason: Nausea and Vomiting Pharmacy Consult (Consult Rx Vancomycin Dosing) 1 each MISCELLANE DAILY PRN PRN Reason: Consult order Sodium Chloride (0.9 % Sodium Chloride Flush 3 Ml Syringe) 3 ml IVFLUSH QSHIFT [facility] Last Admin: 11/12/23 15:06 Dose: 3 ml Documented By: CORDELLK Labs 11/12/23 04:51 11/12/23 04:51 Labs: Laboratory Results - last 24 hr 11/12/23 11/12/23 11/12/23 00:54 00:55 04:51 MCV 88.5 MCH 28.7 MCHC 32.5 RDW 12.3 Plt Count 250 MPV 9.7 Immature Gran % (Auto) 0.1 Neut % (Auto) 33.2 L Lymph % (Auto) 43.1 H [place] % (Auto) 10.0 Eos % (Auto) 12.7 H Baso % (Auto) 0.9 Lymph # (Auto) 2.9 [place] # (Auto) 0.7 Eos # (Auto) 0.9 H Baso # (Auto) 0.1 Abs Immat Gran (auto) 0.01 Absolute Neuts (auto) 2.2 Absolute Nucleated RBC 0.000 Nucleated RBC % (auto) 0.0 Anion Gap 12 Estim Creat Clear Calc 167.9 Estimated GFR > 60 Random Glucose 121 H Calcium 8.8 D Urine Color Yellow Urine Appearance Clear Urine pH 6.5 Ur Specific Laura 1.015 Urine Protein Negative Urine Glucose (UA) Negative Urine Ketones Negative Urine Blood Negative Urine Nitrite Negative Ur Leukocyte Esterase Negative Urine RBC 0-2 Urine WBC 0-5 Ur Squamous Epith Cells 0-2 Urine Bacteria None Seen Hyaline Casts 3-5 Urine Opiates Screen POSITIVE H Ur Buprenorphine Scrn Not Detected Ur Oxycodone Screen Not Detected Urine Methadone Screen Positive H Urine Fentanyl Screen POSITIVE H Ur Barbiturates Screen Not Detected Ur Phencyclidine Scrn Not Detected Ur Amphetamines Screen Not Detected U Benzodiazepines Scrn Not Detected Urine Cocaine Screen POSITIVE H U Marijuana (THC) Screen Not Detected Microbiology Microbiology Results: Microbiology 11/11/23 13:12 Blood Culture - Preliminary Blood - Venous No growth after 24 hours. 11/11/23 13:12 Blood Culture - Preliminary Blood - Venous No growth after 24 hours. Assessment and Plan (1) Gram-positive bacteremia: Status: Acute (2) Polysubstance abuse: Status: Acute Plan This is a 27-year-old male with pertinent history of IV polysubstance use disorder on methadone, asthma not on home oxygen, alcohol use disorder who was called to the emergency department for treatment of bacteremia. 1. Bacillus bacteremia/IVDA -vancomycin (2) -await repeat culture -2D echo 2.Asthma -stable and well compensated -continue outpatient therapies 3.Alcohol use disorder -CIWA -thiamine/folate 4.Polysubstance use disorder -seen by addiction Medicine -methadone order placed Lovenox Full code We will need ongoing hospitalization for IV antibiotics to treat bacillus bacteremia and specialty consultation Quality Stroke Does the patient have a stroke diagnosis?: No VTE Prior VTE?: No VTE Risk Level:: Medical - moderate - high VTE Device Contraindication: Treatment Not Indicated VTE Drug Contraindication: N/A - Med Ordered
--- NOTE | 2023-11-12 17:08 | PC.NURSE ---
Assumed care at 1630. Patient A&Ox3, no complaints at this time. Ate 100% of dinner along with bedside snacks. #20 RAC patent. VSS. Low fall risk precautions in place. Care ongoing.
[2023-11-12 17:10] VITALS: BP 141/70; PULSE 58; RESP 18; TEMP 36.1; O2SAT 97
--- NOTE | 2023-11-12 19:52 | PC.NURSE ---
at 1900, report received at this time, and assume care of pt
[2023-11-12 20:00] VITALS: BP 141/78; PULSE 55; RESP 16; TEMP 36.7; O2SAT 99
[2023-11-12] MEDS: Melatonin 3 MG TABLET 6 MG PO (20:15)
--- NOTE | 2023-11-12 20:17 | PC.NURSE ---
pt requested something for sleep, melatonin give. Pt refused the Lovenox
[2023-11-12 21:27] LABS: Vancomycin Random 10.1 mcg/mL (15-20)
--- NOTE | 2023-11-12 21:37 | HE.PHANOTE ---
Re Vanc Trough came back at 10.1, estimated AUC of 405 mg/L on 1g q8h. On the low end of goal for bloodstream infection. Will increase to 1.25g q8h starting tonight for projected AUC of 506 mg/L. Ordering a level for tomorrow at 2100 after 3 doses.
[2023-11-12] MEDS: vancomycin HCL 1,250 MG in 0.9 % Sodium Chloride 250 ML 166.67 MG IV (22:56)
[2023-11-13 05:15] VITALS: BP 127/73; PULSE 54; RESP 14; TEMP 36; O2SAT 95
[2023-11-13 07:04] LABS: Creatinine Clr Calc Pharmacy 166.5; Estimated Glomerular Filt Rate > 60
[2023-11-13 07:30] VITALS: BP 123/71; PULSE 74; RESP 14; TEMP 36.8; O2SAT 98
[2023-11-13] MEDS: vancomycin HCL 1,250 MG in 0.9 % Sodium Chloride 250 ML 166.67 MG IV (07:44)
[2023-11-13] MEDS: methADONE HCl 20 MG/2 ML ORAL.CONC 125 MG PO (07:45)
[2023-11-13] MEDS: Nicotine 21 MG PATCH.TD24 TRANSDERMA (07:56)
[2023-11-13 08:00] VITALS: BP 123/71; PULSE 74; RESP 14; TEMP 36.8; O2SAT 98
--- NOTE | 2023-11-13 11:09 | PC.NURSE ---
Assumed care of this patient at 1100, patient resting quietly on hospital bed at this time, plan for DC home today pending ID consult.
--- NOTE | 2023-11-13 11:45 | P.DS_ITS ---
DS: Providers Provider Date of Service: 11/13/23 Date of admission: 11/11/23 21:00 Date of discharge: 11/13/23 Primary care physician: None Physician Consults: 11/11/23 21:00 Consult to Infectious Diseases Routine Consulting Provider: [facility] Reason for consultation: gram positive bacteremia 11/11/23 21:02 Addiction Medicine Routine Consulting Provider: Addiction Covering Reason for consultation: polysubstance use disorder DS: Diagnosis Discharge Diagnosis (1) Gram-positive bacteremia: Status: Acute (2) Polysubstance abuse: Status: Acute DS: Summary Hospital Course Hospital Course: 27-year-old male with pertinent history of IV polysubstance use disorder on methadone, asthma not on home oxygen, alcohol use disorder who was called to the emergency department for treatment of bacteremia. Patient was seen in the ER 3 days prior to presentation for right hand pain. Admits to using IV drugs in the right hand. Patient states the pain and swelling of his right hand have improved. He is able to make a fist and move his fingers and wrist. States he came to the ER as he was called due to bacteria present in his blood. Denies fever, chills, chest discomfort, palpitations, shortness of breath, abdominal pain, changes in urinary or bowel habits. No history of endocarditis. His last IV drug use was 2 days prior to presentation. Last alcohol use was 2 days prior to presentation. No concerns for alcohol withdrawal Hospital course Patient admitted to general medical floor and observed on CIWA scale. No signs of withdrawal during this hospitalization. 2D echo was done ; valves did not demonstrate any evidence of vegetation. He was seen in consultation by Infectious Disease who recommended 2 weeks of oral doxycycline. On the day of discharge his cultures have been negative for 24 hours. He is medically suitable for discharge to complete a course of doxycycline and follow up with PCP. He was strongly encouraged to engage with narcotics anonymous to prevent any continuous of his addiction Time Attestation Discharge Coordination Time (in mins): 35 Quality: Safe Use of Opioids Does Pt have an Active Cancer Diagnosis on the Problem List?: No Quality: Stroke Does the patient have a stroke diagnosis?: No Physical Exam Vital Signs: Vital Signs: Last Vital Signs Temp 98.2 F 11/13/23 08:00 Pulse 74 11/13/23 08:00 Resp 14 11/13/23 08:00 BP 123/71 11/13/23 08:00 Pulse Ox 98 11/13/23 08:00 O2 Del Method Room Air 11/13/23 08:00 BMI result Body Mass Index 22.8 Const: Other: Awake alert oriented x3 no acute distress Resp: Other: Clear to auscultation bilaterally no rales rhonchi or wheezes Cardio: Other: No S4; positive S1-S2; no S3 murmurs rubs or gallops GI: Other: Soft nontender nondistended normoactive bowel sounds Extrem: Other: No edema bilaterally DS: Data Data Completed and Pending Completed studies during hospitalization [Text1]: Procedures Detoxification Services for Substance Abuse Treatment (12/01/21) Labs on day of discharge: Laboratory Results - last 24 hr 11/12/23 11/13/23 21:07 06:35 Creatinine 0.64 Estim Creat Clear Calc 166.5 Estimated GFR > 60 Random Vancomycin 10.1 L Preliminary micro results at discharge 11/11/23 13:12 Blood Culture - Preliminary Blood - Venous No growth after 24 hours. 11/11/23 13:12 Blood Culture - Preliminary Blood - Venous No growth after 24 hours. Discharge Plan Discharge Anticipated Discharge Date/Time: 11/13/23 11:40 Patient Disposition: Home, Self-Care Discharge Diagnosis: Bacillus bacteremia Referrals: Physician,None [Primary Care Provider] - 1 Week Discharge Medications: New doxycycline hyclate 100 mg tablet 100 mg PO BID Qty: 28 0RF Continued (DME) Updraft machine See Rx Instructions .Route .MEDSUPPLY Qty: 1 0RF Rx Instructions: use daily as needed albuterol sulfate [Ventolin HFA] 90 mcg/actuation HFA aerosol inhaler 2 puff inhalation QID PRN (Reason: for wheezing) Qty: 18 0RF clonidine HCl 0.1 mg tablet 0.1 mg PO BID PRN (Reason: anxiety) nicotine (polacrilex) 4 mg gum 4 mg PO Q4H PRN (Reason: Smoking Cessation) nicotine 21 mg/24 hr patch 24 hour 1 patch topical BEDTIME PRN (Reason: Smoking Cessation) hydroxyzine HCl 25 mg tablet 25 - 50 mg PO BID PRN (Reason: anxiety) ibuprofen 600 mg tablet 600 mg PO TID PRN (Reason: pain) melatonin 5 mg tablet 5 mg PO BEDTIME PRN (Reason: Sleep) naloxone [Narcan] 4 mg/actuation spray,non-aerosol 1 spray intranasal DIRECTED omeprazole 20 mg capsule,delayed release(DR/EC) 20 mg PO BID@0630,1630 methadone [Methadone Intensol] 10 mg/mL concentrate 125 mg PO DAILY Rx Instructions: [facility] Discharge Orders: Discharge Order (Routine); Ordered 11/13/23 Ordered By: Tony Menjivar Diet: Advance to usual diet Activity on Discharge: As tolerated Stand Alone Forms: Patient Portal Discharge page, Work/School Release Print Language: Yakut Care Plan Goals: Your cultures have been negative thus far. Your echocardiogram does not show any vegetation on your valves. You must stop shooting drugs. Health Concerns: Resume all your medicines as taken before the hospital. Doxycycline 100 mg twice daily for 14 days has been added to your regimen. Is extremely important you complete this dosing Plan of Treatment: Follow up with PCP next available. You need to engage in narcotics anonymous Assessment: See discharge summary
--- NOTE | 2023-11-13 12:05 | MHC.CM.PN ---
PT DCD HOME SELF CARE
--- NOTE | 2023-11-13 12:08 | PC.NURSE ---
Discharge paperwork reviewed with patient, all questions answered, last dose of methadone form given to patient in sealed envelope. Patient to be escorted out to for ride.
--- NOTE | 2023-11-13 14:04 | MHC.RECOVRN ---
AUDIT-C Brief Intervention Pt had positive screen for unhealthy alcohol use on admission, subsequently met with t/w to discuss alcohol use and recovery supports/options. This underwriter solicitation director met with patient to discuss current alcohol use and concerns related to increased risk of alcohol related problems.? Pt reports 12-14 24 ounce beers daily x 7 years. Discussed how alcohol use has impacted health, including negative impact on overall physical wellbeing. Withdrawal History: no hx withdrawal seizure Treatment History: ATS x 8 times, last 1-2 months ago ([facility]), CSS x 2-3 times, last 1-2 months ago ([facility]) Supports:?Dad, grandma, girlfriend Discussed risk reduction strategies including drinking below the recommended limit. Provided pt with written resources including information on inpatient and outpatient treatment, LISY, harm reduction, and recovery coaching. Pt plans to attend AA/NA as well as [facility]. Pt provided with t/w contact information if questions or concerns arise. Denies other questions or concerns at this time.?
== END 2023-11-13 12:18 | disposition home or self-care (01) | DRG 724 ==
LOC: HO.ED 20:44 → HO.EDOVER 21:05 → HO.S3 11-13 11:26 → HO.EDOVER 11-13 11:51
PROVIDERS: Physician Assistant; Admitting Provider Student in an Organized Health Care Education/Training Program; Emergency Provider Internal Medicine; Visit Provider Hospitalist
DX: R78.81 Bacteremia (principal); B96.89 Other specified bacterial agents as the cause of diseases classified elsewhere; F10.90 Alcohol use, unspecified, uncomplicated; F14.10 Cocaine abuse, uncomplicated; J45.909 Unspecified asthma, uncomplicated; F11.20 Opioid dependence, uncomplicated; Z87.891 Personal history of nicotine dependence; Z79.899 Other long term (current) drug therapy
CPT/HCPCS: 36415; 80048; 80053; 80202; 80307; 81001; 82565; 83605; 85025; 87040; 93306; 99285; J1650; J3370; J3371; J7120

== ENCOUNTER 2023-11-11 21:00 | Outpatient (BNV) | payer MEDICAID, SELFPAY | END 2023-11-12 07:00 | PROVIDERS: Admitting Provider Student in an Organized Health Care Education/Training Program; Emergency Provider Internal Medicine; Visit Provider Internal Medicine Cardiovascular Disease | DX: R78.81 Bacteremia (principal) | CPT/HCPCS: 93306 ==

== ENCOUNTER → 2023-11-11 21:00 | Outpatient (BNV) | payer MEDICAID, SELFPAY | PROVIDERS: Admitting Provider Student in an Organized Health Care Education/Training Program; Emergency Provider Internal Medicine; Visit Provider Student in an Organized Health Care Education/Training Program | DX: R78.81 Bacteremia (principal); F19.10 Other psychoactive substance abuse, uncomplicated | CPT/HCPCS: 99222; 99232; 99239 ==

== ENCOUNTER 2024-08-15 07:21 | Emergency (ER) | payer MEDICAID, SELFPAY ==
[2024-08-15 07:26] VITALS: BP 104/62; PULSE 91; RESP 18; TEMP 36.8; O2SAT 98; BMI 24.9
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
[2024-08-15] MEDS: Lidocaine HCl 1 % MPF 5 ML VIAL SUBCUT (08:50)
[2024-08-15] MEDS: Diphth,Pertus(ACell),Tet Adult 0.5 ML SYRINGE IM (08:50)
[2024-08-15 09:31] VITALS: BP 104/62; PULSE 91; RESP 18; TEMP 36.8; O2SAT 98
== END 2024-08-15 09:31 | disposition home or self-care (01) ==
PROVIDERS: Emergency Provider Emergency Medicine
DX: S01.511A Laceration without foreign body of lip, initial encounter (principal); Y04.2XXA Assault by strike against or bumped into by another person, initial encounter; Y93.89 Activity, other specified; Y92.9 Unspecified place or not applicable; Y99.9 Unspecified external cause status; Z23 Encounter for immunization; Z71.85 Encounter for immunization safety counseling
CPT/HCPCS: 12011; 90471; 90715; 99284; J2003

== ENCOUNTER → 2025-01-01 09:38 | Outpatient (BNVA) | payer OTHER, SELFPAY | PROVIDERS: Visit Provider Physician Assistant | DX: S93.401A Sprain of unspecified ligament of right ankle, initial encounter (principal); W18.43XA Slipping, tripping and stumbling without falling due to stepping from one level to another, initial encounter | CPT/HCPCS: 73610; 73620; 99204 ==

== ENCOUNTER → 2025-01-13 09:42 | Outpatient (BNVA) | payer OTHER, SELFPAY | PROVIDERS: Visit Provider Physician Assistant | DX: S93.401D Sprain of unspecified ligament of right ankle, subsequent encounter (principal); W18.43XD Slipping, tripping and stumbling without falling due to stepping from one level to another, subsequent encounter | CPT/HCPCS: 99213 ==

== ENCOUNTER → 2025-01-27 09:51 | Outpatient (BNVA) | payer OTHER, SELFPAY | PROVIDERS: Visit Provider Physician Assistant | DX: S93.401D Sprain of unspecified ligament of right ankle, subsequent encounter (principal); W18.43XD Slipping, tripping and stumbling without falling due to stepping from one level to another, subsequent encounter | CPT/HCPCS: 99214 ==